=== PATIENT | female | born 1980 | race American Indian/Alaskan Native ===

== ENCOUNTER 2016-11-06 12:10 | Emergency (ER) | payer OTHER ==
[2016-11-06 12:36] VITALS: RESP 18
[2016-11-06 13:38] LABS: BASO # 0.1 K/uL (0.0-0.2); BASO % 0.5 % (0.0-2.0); EOS # 2.1 K/uL (0.0-0.7); EOS % 17.3 % (0.0-4.0); HEMOGLOBIN 11.6 g/dL (11.0-16.0); LYMPH # 2.5 K/uL (1.0-4.3); LYMPH % 21.1 % (20.0-40.0); MEAN CELL VOLUME 83.8 fL (81.0-99.0); MEAN CORPUSCULAR HEMOGLOBIN 27.2 pg (27.0-31.0); MEAN CORPUSCULAR HGB CONC 32.4 g/dL (33.0-37.0); MEAN PLATELET VOLUME 9.2 fL (7.2-11.7); MONO # 0.8 K/uL (0.0-0.8); MONO % 7.1 % (0.0-10.0); NEUT # 6.4 K/uL (1.8-7.0); RBC 4.28 Mil/uL (3.80-5.20); RED CELL DISTRIBUTION WIDTH 13.5 % (11.5-14.5); WHITE BLOOD COUNT 11.9 K/uL (4.8-10.8)
[2016-11-06 13:54] LABS: HCG,QUALITATIVE URINE POSITIVE (NEGATIVE)
[2016-11-06 13:58] LABS: SQUAMOUS EPITHIAL 1 /hpf (0-5); URINE BILIRUBIN NEGATIVE (NEGATIVE); URINE BLOOD 2+ (NEGATIVE); URINE CLARITY Hazy (Clear); URINE COLOR Amber (YELLOW); URINE GLUCOSE (UA) NORMAL (Normal); URINE LEUKOCYTE ESTERASE 1+ Leu/uL (Negative); URINE NITRATE NEGATIVE (NEGATIVE); URINE PROTEIN 1+ mg/dL (NEGATIVE); URINE UROBILINOGEN NORMAL mg/dL (0.2-1.0)
[2016-11-06 14:22] LABS: ALB/GLOB RATIO 1.1 (1.0-2.1); ALT/SGPT 19 U/L (9-52); AST/SGOT 23 U/L (14-36); BLOOD UREA NITROGEN 6 mg/dL (7-17); GFR AFRICAN-AMERICAN > 60; GFR NON-AFRICAN AMERICAN > 60
[2016-11-06 14:23] LABS: CALCIUM 8.8 mg/dl (8.6-10.4)
--- NOTE | 2016-11-06 14:54 | US ---
Indication: Bleeding Comparison: None available Technique: Real-time transabdominal pelvic ultrasound was performed. In addition a transvaginal pelvic ultrasound was necessary to better depict pelvic anatomy. Findings: The uterus measures approximately 11.1 x 6.4 x 7.1 cm. Cervix length measures approximately 3.8 cm. There is a single intrauterine fetus present. The gestational sac measures 1.1 cm and is compatible with a gestational age of 5 weeks 2 days. The crown-rump length measures 1.2 cm and is compatible with a gestational age of 7 weeks 3 days. heart motion is not detected. The right ovary measures 2.6 x 1.8 x2.1 cm. 0.6 x 0.7 x 0.5 cm echogenic focus within the right ovary, indeterminate. The left ovary measures 3.6 x 1.8 x 2.9 cm. Blood flow was demonstrated to both ovaries. Impression: Single intrauterine compatible with gestational age 5 weeks 2 days by gestational sac calculation and 7 weeks 3 days by crown-rump length calculation. heart motion is not detected. Correlate clinically. 0.6 x 0.7 x 0.5 cm echogenic focus within the right ovary, indeterminate ; possibly complex cyst however dermoid is not excluded. Recommend short-term (6 week) ultrasound follow-up in order to assess for resolution.
--- NOTE | 2016-11-06 15:02 | C.PDOC ---
History Of Present Illness 36 y/o female, , 8 weeks , presents to the ED for evaluation of vaginal spotting associated with cramping abdominal pain for the last 2 days. Otherwise, denies any dysuria, hematuria, vaginal discharge, back pain, n/v/d, or fever. used for translation. Time Seen by Provider: 11/06/16 12:30 Chief Complaint (Nursing): Female Genitourinary History Per: Patient, Family History/Exam Limitations: language barrier (family used) Onset/Duration Of Symptoms: Days (2) Current Symptoms Are (Timing): Still Present Quality Of Discomfort: Cramping Associated Symptoms: denies: Fever, Chills, Nausea, Vomiting, Diarrhea, Loss Of Appetite, Back Pain, Chest Pain, Constipation, Urinary Symptoms Alleviating Factors: None Recent travel outside of the [place]: No Additional History Per: Patient Abnormal Vaginal Bleeding: Yes : 4 Para: 3 Miscarriage: 0 Past Medical History Reviewed: Historical Data, Nursing Documentation, Vital Signs Vital Signs: Last Vital Signs Temp 97.7 F 11/06/16 15:18 Pulse 80 11/06/16 15:18 Resp 18 11/06/16 15:18 BP 97/65 L 11/06/16 15:18 Pulse Ox 97 11/06/16 16:59 Family History: States: Unknown Family Hx - Social History Hx Alcohol Use: No Hx Substance Use: No - Immunization History Hx Tetanus Toxoid Vaccination: No Hx Influenza Vaccination: No Hx Pneumococcal Vaccination: No Review Of Systems Except As Marked, All Systems Reviewed And Found Negative. Constitutional: Negative for: Fever, Chills Gastrointestinal: Positive for: Abdominal Pain. Negative for: Nausea, Vomiting , Diarrhea, Constipation Genitourinary: Positive for: Vaginal Bleeding (spotting). Negative for: Dysuria , Frequency, Incontinence, Hematuria, Vaginal Discharge Musculoskeletal: Negative for: Back Pain Skin: Negative for: Rash Physical Exam - Physical Exam Appears: Non-toxic, No Acute Distress Skin: Normal Color, Warm, Dry Head: Atraumatic, Normacephalic Eye(s): bilateral: Normal Inspection, EOMI Nose: Normal Oral Mucosa: Moist Neck: Normal ROM, Supple Chest: Symmetrical Cardiovascular: Rhythm Regular, No Murmur Respiratory: Normal Breath Sounds, No Rales, No Rhonchi, No Wheezing Gastrointestinal/Abdominal: Normal Exam, Soft, No Tenderness, No Guarding, No Rebound Back: Normal Inspection Extremity: Normal ROM Neurological/Psych: Oriented x3, Normal Speech ED Course And Treatment - Laboratory Results Result Diagrams: 11/06/16 13:28 11/06/16 13:28 O2 Sat by Pulse Oximetry: 97 (RA) Pulse Ox Interpretation: Normal - CT Scan/US Preg 1st trimester US Other Rad Studies (CT/US): Read By Radiologist, Radiology Report Reviewed CT/US Interpretation: Findings: The uterus measures approximately 11.1 x 6.4 x 7.1 cm. Cervix length measures approximately 3.8 cm. There is a single intrauterine fetus present. The gestational sac measures 1.1 cm and is compatible with a gestational age of 5 weeks 2 days. The crown-rump length measures 1.2 cm and is compatible with a gestational age of 7 weeks 3 days. heart motion is not detected. The right ovary measures 2.6 x 1.8 x2.1 cm. 0.6 x 0.7 x 0.5 cm echogenic focus within the right ovary, indeterminate. The left ovary measures 3.6 x 1.8 x 2.9 cm. Blood flow was demonstrated to both ovaries. Impression: Single intrauterine compatible with gestational age 5 weeks 2 days by gestational sac calculation and 7 weeks 3 days by crown-rump length calculation. heart motion is not detected. Correlate clinically. 0.6 x 0.7 x 0.5 cm echogenic focus within the right ovary , indeterminate ; possibly complex cyst however dermoid is not excluded. Recommend short-term (6 week) ultrasound follow-up in order to assess for resolution. Progress Note: Blood work, urinalysis, preg 1st trimester ultrasound ordered and reviewed. Discussed lab and ultrasound results with patient and copies given. Discussed importance of repeat lab and imaging in 3-4 days for futher evaluation. Disposition - Disposition Disposition: HOME/ ROUTINE Disposition Time: 15:00 Condition: STABLE Additional Instructions: BetaHCG todday is 5800. Follow up with your OB/ ER in 3-4 days for further evaluation. Return to the emergency department at any time if symptoms persist or worsen. Prescriptions: Nitrofurantoin Macrocrystals [Macrobid] 1 cap PO BID #14 cap Multivit/Folic Acid/I [ Plus] 1 tab PO DAILY #30 tab Instructions: Threatened Miscarriage (ED) Forms: [facility] (Citizen Of [place]) - Clinical Impression Clinical Impression: Threatened - PA / CODING SUPPORT SPECIALIST / Resident Statement MD/DO has reviewed & agrees with the documentation as recorded. - Scribe Statement The provider has reviewed the documentation as recorded by the Scribe Amor Joyce All medical record entries made by the Ranjithibe were at my direction and personally dictated by me. I have reviewed the chart and agree that the record accurately reflects my personal performance of the history, physical exam, medical decision making, and the department course for this patient. I have also personally directed, reviewed, and agree with the discharge instructions and disposition.
[2016-11-06 15:19] VITALS: BP 97/65; PULSE 80; TEMP 97.7
[2016-11-06 16:50] VITALS: O2SAT 97
== END 2016-11-06 15:39 | disposition home or self-care (01) ==
LOC: C.ER 12:10
DX: O20.0 Threatened abortion (principal); Z3A.01 Less than 8 weeks gestation of pregnancy

== ENCOUNTER 2016-11-11 13:00 | Emergency (ER) | payer OTHER | END 2016-11-11 16:00 | disposition home or self-care (01) | LOC: C.ER 13:00 | DX: O03.9 Complete or unspecified spontaneous abortion without complication (principal) ==

== ENCOUNTER 2018-05-12 23:32 | Observation (INO) | payer OTHER ==
[2018-05-12 23:54] VITALS: BMI 30.2
[2018-05-13] MEDS ORDERED: Lactated Ringer's 1,000 ML IV ONE (00:36)
[2018-05-13 00:47] LABS: SQUAMOUS EPITHIAL 6 /hpf (0-5); URINE BACTERIA OCC (<OCC); URINE BILIRUBIN NEGATIVE (NEGATIVE); URINE BLOOD NEGATIVE (NEGATIVE); URINE COLOR Yellow (YELLOW); URINE GLUCOSE (UA) NORMAL (Normal); URINE LEUKOCYTE ESTERASE 2+ Leu/uL (Negative); URINE PROTEIN NEGATIVE (NEGATIVE); URINE UROBILINOGEN NORMAL mg/dL (0.2-1.0)
[2018-05-13 00:48] LABS: URINE CLARITY Hazy (Clear)
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
[2018-05-13] MEDS ORDERED: Magnesium Sulfate 4 gm/100 ml 4 GM/100 ML BAG IVPB ONE ×2 (01:20→02:02)
[2018-05-13] MEDS ORDERED: Magnesium Sulfate 20 gm 20 GM/500 ML BAG IV ONE (01:20)
[2018-05-13] MEDS ORDERED: Lactated Ringer's 1,000 ML IV SCH (01:30)
[2018-05-13] MEDS: Betamethasone Soluspan 30 mg/5mL Inj Susp IM SCH (02:05)
[2018-05-13 02:23] LABS: PROTHROMBIN TIME 11.2 SECONDS (9.7-12.2)
[2018-05-13] MEDS ORDERED: Magnesium Sulfate 20 gm 20,000 MG/500 ML BAG IV ONE ×3 (02:51→19:32)
[2018-05-13 07:34] LABS: HEMOGLOBIN 10.6 g/dL (11.0-16.0); MEAN CELL VOLUME 85.6 fL (81.0-99.0); MEAN CORPUSCULAR HEMOGLOBIN 28.1 pg (27.0-31.0); MEAN CORPUSCULAR HGB CONC 32.8 g/dL (33.0-37.0); MEAN PLATELET VOLUME 10.1 fL (7.2-11.7); RBC 3.77 Mil/uL (3.80-5.20); RED CELL DISTRIBUTION WIDTH 13.1 % (11.5-14.5); WHITE BLOOD COUNT 10.7 K/uL (4.8-10.8)
[2018-05-13 07:49] LABS: ALB/GLOB RATIO 1.1 (1.0-2.1); ALBUMIN 3.7 g/dL (3.5-5.0); ALT/SGPT 7 U/L (9-52); AST/SGOT 19 U/L (14-36); BLOOD UREA NITROGEN 5 mg/dL (7-17); CALCIUM 7.8 mg/dl (8.6-10.4); GFR NON-AFRICAN AMERICAN > 60
[2018-05-13 08:26] LABS: FDP INTERPRETATION NEGATIVE (NEGATIVE); FDP QUANTITY <10 ug/mL (<10)
--- NOTE | 2018-05-13 08:44 | US ---
PROCEDURE: HISTORY: LMP 10/19/2017; fell COMPARISON: 11/06/2016 TECHNIQUE: Transabdominal scanning of the maternal pelvis and a 2nd/ 3rd trimester with image documentation FINDINGS: Fetus: Single intrauterine gestation heart rate: Present at 135 beats per minute presentation: Cephalic Placenta: Anteriorwithout previa or abruption Amniotic fluid : Normal appearing: Amniotic fluid index 21.75 cm anatomy: Limited due to late gestation. biometrics: Gestational age by ultrasound: 30 weeks 3 days +/-2 weeks 1 day date of delivery by ultrasound 07/19/2018 prior ultrasound estimated date of delivery by ultrasound was 06/29/2017. Estimated weight: 1546g +/-232g Maternal factors: Uterus: Unremarkable. No myometrial masses Cervix:3.1 cm length Free fluid: None Biophysical profile: Breathin Gross body movements: 2 Limb tone: 2 Amniotic Fluid: 2 Total biophysical profile: 11/11 IMPRESSION: Single intrauterine gestation with normal cardiac activity. presentation - cephalic presentation. Anterior placenta. No previa. Closed cervix. Cervical length 3.1 cm. Biophysical profile 11/11 Concordant results (preliminary interpretation) provided by ernie.
[2018-05-13] MEDS ORDERED: Magnesium Sulfate 20 gm 20 GM/500 ML BAG IV SCH (10:15)
[2018-05-13 11:07] LABS: SQUAMOUS EPITHIAL < 1 /hpf (0-5); URINE BACTERIA RARE (<OCC); URINE BILIRUBIN NEGATIVE (NEGATIVE); URINE BLOOD NEGATIVE (NEGATIVE); URINE CLARITY Clear (Clear); URINE COLOR Straw (YELLOW); URINE GLUCOSE (UA) NORMAL (Normal); URINE LEUKOCYTE ESTERASE NEG Leu/uL (Negative); URINE PROTEIN NEGATIVE (NEGATIVE); URINE UROBILINOGEN NORMAL mg/dL (0.2-1.0)
--- NOTE | 2018-05-13 13:45 | RAD ---
Date of service: 05/13/2018 PROCEDURE: Left Knee Radiographs. HISTORY: Pain. COMPARISON: None. FINDINGS: BONES: No acute fracture or destructive bony lesion identified. JOINTS: No osteophyte development or cortical sclerosis appreciate however there is mild joint space narrowing the medial femorotibial compartment. JOINT EFFUSION: None. OTHER FINDINGS: None. IMPRESSION: Mild degenerative change medial femorotibial compartment. No acute fracture, subluxation or dislocation left knee.
[2018-05-14] MEDS: Betamethasone Soluspan 30 mg/5mL Inj Susp IM SCH (02:05)
[2018-05-14] MEDS ORDERED: MAGNESIUM SULFATE IV ONE (04:47)
[2018-05-14] MEDS ORDERED: Oxycodone/Acetaminophen 5/325 mg Tab PO STA (09:57)
[2018-05-14 15:06] VITALS: BP 106/67; PULSE 107; RESP 18; TEMP 97; O2SAT 99
== END 2018-05-14 10:45 | disposition home or self-care (01) ==
LOC: C.EROB 23:32 → C.4D 05-13 01:12 → INTOOBSV 05-13 01:12
PROVIDERS: ADMIT Obstetrics & Gynecology; ATTEND Obstetrics & Gynecology
DX: O60.03 Preterm labor without delivery, third trimester (principal); Z3A.30 30 weeks gestation of pregnancy; V78.4XXA Person boarding or alighting from bus injured in noncollision transport accident, initial encounter
CPT/HCPCS: 73560; 76815; 76818; 80053; 81001; 83735; 85027; 85362; 85384; 85610; 85730; 86850; 86900; 86920; 96360; 96365; 96372; G0378; J0702; J2270; J3475; J7120

== ENCOUNTER 2018-06-24 03:01 | Inpatient (IN) | payer MEDICAID, OTHER ==
[2018-06-24] MEDS ORDERED: Albuterol-Ipratrop 3 mg / 0.5 (3 ml) UD ONE ×3 (03:18→07:55)
[2018-06-24] MEDS ORDERED: Magnesium Sulfate 1 gm in D5W 1 GM/100 ML BAG IV ONE (03:34)
[2018-06-24] MEDS ORDERED: Albuterol 0.083% Inhal Sol (2.5 mg/3 mL) UD IH STA ×4 (03:34→04:47)
[2018-06-24] MEDS ORDERED: Sodium Chloride 0.9% 1,000 ML IV ONE (03:34)
[2018-06-24] MEDS ORDERED: Magnesium Sulfate 1 gm in D5W 2 GM/200 ML BAG IVPB ONE (03:49)
[2018-06-24] MEDS ORDERED: Albuterol 0.083% Inhal Sol (2.5 mg/3 mL) UD ONE ×3 (03:49→05:02)
[2018-06-24] MEDS ORDERED: Sodium Chloride 0.9% 1,000 ML ONE (03:49)
[2018-06-24 03:53] LABS: VENOUS BLOOD GAS BASE EXCESS -2.8 mmol/L (0.0-2.0); VENOUS BLOOD GAS PCO2 37 mmHg (40-60); VENOUS BLOOD GAS PO2 84 mm/Hg (30-55); VENOUS BLOOD PH 7.38 (7.32-7.43)
[2018-06-24 03:55] LABS: BASO # 0.1 K/uL (0.0-0.2); BASO % 0.6 % (0.0-2.0); EOS % 10.7 % (0.0-4.0); HEMOGLOBIN 10.7 g/dL (11.0-16.0); LYMPH % 21.8 % (20.0-40.0); MEAN CELL VOLUME 82.1 fL (81.0-99.0); MEAN CORPUSCULAR HEMOGLOBIN 26.7 pg (27.0-31.0); MEAN CORPUSCULAR HGB CONC 32.6 g/dL (33.0-37.0); MONO # 1.3 K/uL (0.0-0.8); NEUT # 4.9 K/uL (1.8-7.0); NEUT % 52.9 % (50.0-75.0); NRBC % 0.1 % (0.0-2.0); RBC 4.01 Mil/uL (3.80-5.20); RED CELL DISTRIBUTION WIDTH 13.3 % (11.5-14.5); WHITE BLOOD COUNT 9.2 K/uL (4.8-10.8)
[2018-06-24 04:01] LABS: ALB/GLOB RATIO 1.1 (1.0-2.1); ALBUMIN 3.8 g/dL (3.5-5.0); BLOOD UREA NITROGEN 5 mg/dL (7-17); GFR NON-AFRICAN AMERICAN > 60
[2018-06-24 04:09] LABS: ALT/SGPT 141 U/L (9-52); AST/SGOT 162 U/L (14-36)
--- NOTE | 2018-06-24 04:49 | C.PDOC ---
History Of Present Illness 38 year old female BIBA for evaluation of SOB and wheezing that began at 8pm tonight. Patient was recently diagnosed with asthma and states she has no albuterol at home. Patient denies chest pain, palpitations, nausea, vomiting, abdominal or pelvic pain, vaginal bleeding/discharge. Patient is currently approx 8 months (32weeks). Time Seen by Provider: 06/24/18 03:25 Chief Complaint (Nursing): Shortness Of Breath History Per: Patient, Family ( at bedside ) History/Exam Limitations: clinical condition Onset/Duration Of Symptoms: Hrs Current Symptoms Are (Timing): Still Present Current Respiratory Medications: See Home Med List Severity: Moderate Associated Symptoms: Other (SOB, Wheezing) Recent travel outside of the [place]: No Past Medical History Reviewed: Historical Data, Nursing Documentation, Vital Signs Vital Signs: Last Vital Signs Temp 97.4 F L 06/24/18 03:10 Pulse 106 H 06/24/18 03:10 Resp 27 H 06/24/18 03:23 BP 107/76 06/24/18 03:10 Pulse Ox 100 06/24/18 03:23 - Medical History PMH: Asthma Family History: States: No Known Family Hx - Social History Hx Alcohol Use: No Hx Substance Use: No - Immunization History Hx Tetanus Toxoid Vaccination: No Hx Influenza Vaccination: No Hx Pneumococcal Vaccination: No Review Of Systems Constitutional: Negative for: Fever, Chills Cardiovascular: Negative for: Chest Pain, Palpitations Respiratory: Positive for: Shortness of Breath, Wheezing. Negative for: Cough Gastrointestinal: Negative for: Nausea, Vomiting, Abdominal Pain, Diarrhea Physical Exam - Physical Exam Appears: Non-toxic, Other (Audibly wheezing, in mild respiratory distress) Skin: Normal Color, Warm, Dry, No Rash Head: Atraumatic Eye(s): bilateral: Normal Inspection Ear(s): Bilateral: Normal Oral Mucosa: Moist Throat: Normal, No Erythema, No Exudate, No Drooling Neck: Normal, Supple Chest: Symmetrical, No Tenderness Cardiovascular: Rhythm Regular (tachycardic ) Respiratory: Accessory Muscle Use (Mild), No Rales, No Rhonchi, Wheezing (Diffuse expiratory wheezing B/L ) Gastrointestinal/Abdominal: Bowel Sounds, Soft, No Tenderness, Other (Gravid) Extremity: Normal ROM, No Pedal Edema, No Calf Tenderness Pulses: Left Dorsalis Pedis: Normal, Right Dorsalis Pedis: Normal Neurological/Psych: Oriented x3 ED Course And Treatment - Laboratory Results Result Diagrams: 06/24/18 03:53 06/24/18 03:53 Lab Results: pO2 84 mm/Hg (30-55) H 06/24/18 03:45 VBG pH 7.38 (7.32-7.43) 06/24/18 03:45 VBG pCO2 37 mmHg (40-60) L 06/24/18 03:45 VBG HCO3 22.7 mmol/L 06/24/18 03:45 VBG Total CO2 23.0 mmol/L (22-28) 06/24/18 03:45 VBG O2 Sat (Calc) 98.2 % (40-65) H 06/24/18 03:45 VBG Base Excess -2.8 mmol/L (0.0-2.0) L 06/24/18 03:45 VBG Potassium 3.6 mmol/L (3.6-5.2) 06/24/18 03:45 Sodium 136.0 mmol/l (132-148) 06/24/18 03:45 Chloride 104.0 mmol/L (98-107) 06/24/18 03:45 Glucose 98 mg/dl (65-105) 06/24/18 03:45 Lactate 1.1 mmol/L (0.7-2.1) 06/24/18 03:45 Total Bilirubin 1.2 mg/dL (0.2-1.3) 06/24/18 03:53 AST 162 U/L (14-36) H D 06/24/18 03:53 ALT 141 U/L (9-52) H D 06/24/18 03:53 Alkaline Phosphatase 166 U/L (38-126) H D 06/24/18 03:53 Total Protein 7.4 g/dL (6.3-8.3) 06/24/18 03:53 Albumin 3.8 g/dL (3.5-5.0) 06/24/18 03:53 Globulin 3.6 gm/dL (2.2-3.9) 06/24/18 03:53 Albumin/Globulin Ratio 1.1 (1.0-2.1) 06/24/18 03:53 O2 Sat by Pulse Oximetry: 100 (Room air) Pulse Ox Interpretation: Normal Progress Note: Blood work ordered. IV fluids, solumedrol, mag sulfate, and albuterol administered. Reevaluation Time: 05:00 Reassessment Condition: Unchanged (Patient continues to have diffuse exp wheezing B/L and mild accessory muslce use. Vapotherm ordered, and patient will need admission.) Disposition - Disposition Forms: [facility] ([place]) - Scribe Statement The provider has reviewed the documentation as recorded by the Scribramses [place] All medical record entries made by the Scribe were at my direction and personally dictated by me. I have reviewed the chart and agree that the record accurately reflects my personal performance of the history, physical exam, medical decision making, and the department course for this patient. I have also personally directed, reviewed, and agree with the discharge instructions and disposition.
[2018-06-24 05:53] LABS: SQUAMOUS EPITHIAL 5 /hpf (0-5); URINE BACTERIA OCC (<OCC); URINE BILIRUBIN NEGATIVE (NEGATIVE); URINE BLOOD NEGATIVE (NEGATIVE); URINE COLOR Yellow (YELLOW); URINE GLUCOSE (UA) NORMAL (Normal); URINE PROTEIN NEGATIVE (NEGATIVE)
[2018-06-24 06:09] LABS: URINE CLARITY Hazy (Clear); URINE LEUKOCYTE ESTERASE 2+ Leu/uL (Negative)
[2018-06-24] MEDS: Albuterol 0.083% Inhal Sol (2.5 mg/3 mL) UD IH SCH ×7 (06:36→20:00)
--- NOTE | 2018-06-24 09:34 | US ---
Date of service: 06/24/2018 PROCEDURE: Obstetrical ultrasound examination HISTORY: 32wks; acute asthma exacerbation COMPARISON: Not available TECHNIQUE: Transabdominal FINDINGS: There is a single live intrauterine gestation identified in cephalic presentation. The heart rate is 144 beats per minute. A normal quantity of amniotic fluid is visualized. The CLARISSA is 11.5 cm. A normal anterior placenta is identified. There is no evidence of placenta previa. The cervix is closed and measures 3.2 cm in length. biometry yields a gestational age of 36 weeks 2 days. The LUCAS by ultrasound is 07/20/2018. The LUCAS by LMP of 10/19/2017 is 35 weeks 3 days. The estimated weight is 2874 g. Limited biophysical profile examination yields a score of 8 out of 8. Please note that anatomy was not assessed at this time. Nevertheless, a 4 chamber heart is demonstrated. There is fluid distending the stomach and urinary bladder. The anterior abdominal wall is intact. There is no evidence of hydronephrosis. A three-vessel umbilical cord is identified. IMPRESSION: Single live intrauterine gestation of approximately 36 weeks 2 days gestational age. Cephalic presentation. heart rate 144 beats per minute. Anterior placenta. No previa. Cervix long and closed. No gross anatomic abnormality. Biophysical profile score 8 out of 8. EFW is 2874 g.
[2018-06-24] MEDS: Budesonide 0.5 mg/2 ml Inhal Susp UD INH SCH ×2 (10:05→20:01)
[2018-06-24] MEDS: MethylPREDNISolone 40 mg Vial IVP SCH ×3 (10:27→22:00)
--- NOTE | 2018-06-24 10:27 | RAD ---
Date of service: 06/24/2018 PROCEDURE: CHEST RADIOGRAPH, 1 VIEW HISTORY: SOB - , PLEASE SHIELD ABDOMEN COMPARISON: None available. FINDINGS: LUNGS: The lungs are well inflated and clear. PLEURA: No pneumothorax or pleural effusion. CARDIOVASCULAR: The heart is normal in size. No aortic atherosclerotic calcifications present. OSSEOUS STRUCTURES: Within normal limits for the patient's age. VISUALIZED UPPER ABDOMEN: Normal. OTHER FINDINGS: None. IMPRESSION: No active pulmonary disease.
--- NOTE | 2018-06-24 10:32 | CP.PCM.CON ---
<Fabian Max - Last Filed: 06/24/18 15:05> History of Present Illness - History of Present Illness History of Present Illness: DISPATCHER ELECTRIC POWER CONSULT NOTE FOR DR. 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 at bedside, translating for pt, reports pt has been feeling SOB for several weeks since her last admission (05/13/18) when she presented to [facility] s/p fall. He reports pt decided to come to ED today as SOB had become unbearable. Pt reports SOB is not aggravated/alleviated with anything in particular. She reports a history of childhood asthma however does not use a rescue inhaler at home. She was recently diagnosed with a "urinary tract infection" and was prescribed antibiotics, however reports noncompliance. She reports she feels movements and has occasional contractions, however does not currently feel contractions. 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 She currently reports continued shortness of breath that has improved significantly since receiving treatment and high-flow O2 supplementation in ED. Currently she denies fevers, chills, headache, dizziness, vision changes, chest pain, palpitations, nausea, vomiting, diarrhea, dysuria. ObHx: , term NSVDx3(2007, 2008, 2011) w/o complications GynHx: LMP 09/21/17. Menarche 13 y/o. Menstruation q28d lasting 5 days with moderate bleeding. Currently sexually active with 1 partner (). No hx of STI. Denies previous contraceptive use. Mammogram/Pap N/A PMH: Childhood asthma All: NKDA PSH: Denies SH: Denies tobacco, ETOH, illicit drug use FH: Mother/Father: noncontributory. Denies FH of defects, intellectual disability, recurrent loss Hosp: 05/13/18 s/p fall at bus stop. Was admitted, BPP 11/11 and discharged from [facility] Meds: Ferrous sulfate, multivitamins PMD: Dr. Chandra Otto Coat Cutter: Dr. Jaren Figueredo ([facility]) Current O2 Supplementation: HFOT 40L @ 100% FiO2 Review of Systems - Review of Systems Review of Systems: per HPI Past Patient History - Past Social History Smoking Status: Never Smoked - CARDIAC Hx Hypertension: No - PULMONARY Hx Asthma: Yes - PSYCHIATRIC Hx Substance Use: No - SURGICAL HISTORY Hx Surgeries: No - ANESTHESIA Hx Anesthesia: No Meds Allergies/Adverse Reactions: Allergies Allergy/AdvReac Type Severity Reaction Status Date / Time No Known Allergies Allergy Verified 11/11/16 13:33 - Medications Medications: Current Medications Albuterol Sulfate (Albuterol 0.083% Inhal Essence (2.5 Mg/3 Ml) Ud) 2.5 mg IH Q2 ON LICENSE OF [facility] Last Admin: 06/24/18 10:05 Dose: 2.5 mg Budesonide (Pulmicort Respules) 0.5 mg INH RQ12 ON LICENSE OF [facility] Last Admin: 06/24/18 10:05 Dose: 0.5 mg Lactated Ringer's (Lactated Ringer's) 1,000 mls @ 75 mls/hr IV .[id number] ON LICENSE OF [facility] Methylprednisolone (Solu-Medrol) 40 mg IVP Q6H ON LICENSE OF [facility] Last Admin: 06/24/18 10:27 Dose: 40 mg Physical Exam - Constitutional Appears: Well, Non-toxic, No Acute Distress - Head Exam Head Exam: NORMAL INSPECTION, NORMOCEPHALIC - Eye Exam Eye Exam: EOMI, Normal appearance Pupil Exam: PERRL - ENT Exam ENT Exam: Mucous Membranes Moist, Normal Exam - Neck Exam Neck exam: Positive for: Normal Inspection - Respiratory Exam Respiratory Exam: Wheezes - Cardiovascular Exam Cardiovascular Exam: Tachycardia, +S1, +S2 - GI/Abdominal Exam GI & Abdominal Exam: Distended (Appropriate for ) - Exam External exam: NORMAL EXTERNAL EXAM Additional comments: 30% effacement High station, fingertip length Medium consistency cervix - Extremities Exam Extremities exam: Positive for: pedal edema (trace) - Back Exam Back exam: NORMAL INSPECTION - Neurological Exam Neurological exam: Alert, Oriented x3 - Psychiatric Exam Psychiatric exam: Normal Affect, Normal Mood - Skin Skin Exam: Dry, Intact, Warm Results - Vital Signs Recent Vital Signs: Last Vital Signs Temp 98.2 F 06/24/18 09:39 Pulse 122 H 06/24/18 09:28 Resp 22 06/24/18 10:16 BP 107/78 06/24/18 09:28 Pulse Ox 100 06/24/18 09:28 - Labs Result Diagrams: 06/24/18 03:53 06/24/18 03:53 Labs: Laboratory Results - last 24 hr 06/24/18 06/24/18 06/24/18 03:45 03:53 03:53 WBC 9.2 RBC 4.01 Hgb 10.7 L Hct 32.9 L MCV 82.1 D MCH 26.7 L MCHC 32.6 L RDW 13.3 Plt Count 208 MPV 11.0 Neut % (Auto) 52.9 Lymph % (Auto) 21.8 [place] % (Auto) 14.0 H Eos % (Auto) 10.7 H Baso % (Auto) 0.6 Neut # (Auto) 4.9 Lymph # (Auto) 2.0 [place] # (Auto) 1.3 H Eos # (Auto) 1.0 H Baso # (Auto) 0.1 pO2 84 H VBG pH 7.38 VBG pCO2 37 L VBG HCO3 22.7 VBG Total CO2 23.0 VBG O2 Sat (Calc) 98.2 H VBG Base Excess -2.8 L VBG Potassium 3.6 Sodium 136.0 134 Chloride 104.0 105 Glucose 98 Lactate 1.1 Potassium 4.1 Carbon Dioxide 22 Anion Gap 11 BUN 5 L Creatinine 0.5 L Est GFR ( Amer) > 60 Est GFR (Non-Af Amer) > 60 Random Glucose 91 D Calcium 9.0 Total Bilirubin 1.2 AST 162 H D ALT 141 H D Alkaline Phosphatase 166 H D Total Protein 7.4 Albumin 3.8 Globulin 3.6 Albumin/Globulin Ratio 1.1 Venous Blood Potassium 3.6 Urine Color Urine Clarity Urine pH Ur Specific [place] Urine Protein Urine Glucose (UA) Urine Ketones Urine Blood Urine Nitrate Urine Bilirubin Urine Urobilinogen Ur Leukocyte Esterase Urine WBC (Auto) Urine RBC (Auto) Ur Squamous Epith Cells Urine Bacteria 06/24/18 05:37 WBC RBC Hgb Hct MCV MCH MCHC RDW Plt Count MPV Neut % (Auto) Lymph % (Auto) [place] % (Auto) Eos % (Auto) Baso % (Auto) Neut # (Auto) Lymph # (Auto) [place] # (Auto) Eos # (Auto) Baso # (Auto) pO2 VBG pH VBG pCO2 VBG HCO3 VBG Total CO2 VBG O2 Sat (Calc) VBG Base Excess VBG Potassium Sodium Chloride Glucose Lactate Potassium Carbon Dioxide Anion Gap BUN Creatinine Est GFR ( Amer) Est GFR (Non-Af Amer) Random Glucose Calcium Total Bilirubin AST ALT Alkaline Phosphatase Total Protein Albumin Globulin Albumin/Globulin Ratio Venous Blood Potassium Urine Color Yellow Urine Clarity Hazy Urine pH 5.0 Ur Specific [place] 1.011 Urine Protein Negative Urine Glucose (UA) Normal Urine Ketones 1+ H Urine Blood Negative Urine Nitrate Negative Urine Bilirubin Negative Urine Urobilinogen 2.0 H Ur Leukocyte Esterase 2+ H Urine WBC (Auto) 18 H Urine RBC (Auto) 7 H Ur Squamous Epith Cells 5 Urine Bacteria Occ H Assessment & Plan - Assessment and Plan (Free Text) Assessment: 38 y/o (sABx2) Mexican-Togolese F with IUP at 36wk 2d (confirmed by u/s) with LUCAS 06/28/18 presenting to ED with acute onset asthma exacerbation. Pt refractory to treatment in ED and accepted to ICU. Pt currently afebrile, normotensive, tachycardic, saturating well on HFOT. No signs of seizure-like activity. Pt not in active labor. Coat Cutter consulted for assessment. Plan: - NST performed at bedside. Category 1 reactive NST with moderate variability, FHR: 140s - obtain bedside OB ultrasound, assess IUP & biophysical profile - begin antibiotic for UTI - culture GBS, has been collected at bedside - continue pre- multivitamins and oral iron supplemention - Continue to monitor closely - We will continue to follow - further medical care per ICU team Pt seen, examined and case discussed with attending physician, Dr. Posada. Further recs per attending Fabian Max PGY1 <Sabrina Posada - Last Filed: 06/24/18 15:27> Meds - Medications Medications: Current Medications Albuterol Sulfate (Albuterol 0.083% Inhal Essence (2.5 Mg/3 Ml) Ud) 2.5 mg IH RQ2 ON LICENSE OF [facility] Last Admin: 06/24/18 13:54 Dose: 2.5 mg Budesonide (Pulmicort Respules) 0.5 mg INH RQ12 ON LICENSE OF [facility] Last Admin: 06/24/18 10:05 Dose: 0.5 mg Enoxaparin Sodium (Lovenox) 40 mg SC DAILY ON LICENSE OF [facility] Last Admin: 06/24/18 12:26 Dose: 40 mg Lactated Ringer's (Lactated Ringer's) 1,000 mls @ 75 mls/hr IV .[id number] ON LICENSE OF [facility] Last Admin: 06/24/18 10:48 Dose: 75 mls/hr Ceftriaxone Sodium 1 gm/ (Sodium Chloride) 100 mls @ 100 mls/hr IVPB DAILY ON LICENSE OF [facility]; Protocol Last Admin: 06/24/18 12:27 Dose: 100 mls/hr Methylprednisolone (Solu-Medrol) 40 mg IVP Q6H ON LICENSE OF [facility] Last Admin: 06/24/18 10:27 Dose: 40 mg Results - Vital Signs Recent Vital Signs: Last Vital Signs Temp 97.7 F 06/24/18 12:00 Pulse 112 H 06/24/18 15:00 Resp 19 06/24/18 15:00 BP 113/63 06/24/18 15:00 Pulse Ox 100 06/24/18 15:00 - Labs Result Diagrams: 06/24/18 03:53 06/24/18 03:53 Labs: Laboratory Results - last 24 hr 06/24/18 06/24/18 06/24/18 03:45 03:53 03:53 WBC 9.2 RBC 4.01 Hgb 10.7 L Hct 32.9 L MCV 82.1 D MCH 26.7 L MCHC 32.6 L RDW 13.3 Plt Count 208 MPV 11.0 Neut % (Auto) 52.9 Lymph % (Auto) 21.8 [place] % (Auto) 14.0 H Eos % (Auto) 10.7 H Baso % (Auto) 0.6 Neut # (Auto) 4.9 Lymph # (Auto) 2.0 [place] # (Auto) 1.3 H Eos # (Auto) 1.0 H Baso # (Auto) 0.1 pO2 84 H VBG pH 7.38 VBG pCO2 37 L VBG HCO3 22.7 VBG Total CO2 23.0 VBG O2 Sat (Calc) 98.2 H VBG Base Excess -2.8 L VBG Potassium 3.6 Sodium 136.0 134 Chloride 104.0 105 Glucose 98 Lactate 1.1 Potassium 4.1 Carbon Dioxide 22 Anion Gap 11 BUN 5 L Creatinine 0.5 L Est GFR ( Amer) > 60 Est GFR (Non-Af Amer) > 60 Random Glucose 91 D Calcium 9.0 Total Bilirubin 1.2 AST 162 H D ALT 141 H D Alkaline Phosphatase 166 H D NT-Pro-B Natriuret Pep Total Protein 7.4 Albumin 3.8 Globulin 3.6 Albumin/Globulin Ratio 1.1 Venous Blood Potassium 3.6 Urine Color Urine Clarity Urine pH Ur Specific [place] Urine Protein Urine Glucose (UA) Urine Ketones Urine Blood Urine Nitrate Urine Bilirubin Urine Urobilinogen Ur Leukocyte Esterase Urine WBC (Auto) Urine RBC (Auto) Ur Squamous Epith Cells Urine Bacteria Hepatitis A IgM Ab Hep Bs Antigen Hep B Core IgM Ab Hepatitis C Antibody 06/24/18 06/24/18 06/24/18 05:37 11:45 11:45 WBC RBC Hgb Hct MCV MCH MCHC RDW Plt Count MPV Neut % (Auto) Lymph % (Auto) [place] % (Auto) Eos % (Auto) Baso % (Auto) Neut # (Auto) Lymph # (Auto) [place] # (Auto) Eos # (Auto) Baso # (Auto) pO2 VBG pH VBG pCO2 VBG HCO3 VBG Total CO2 VBG O2 Sat (Calc) VBG Base Excess VBG Potassium Sodium Chloride Glucose Lactate Potassium Carbon Dioxide Anion Gap BUN Creatinine Est GFR ( Amer) Est GFR (Non-Af Amer) Random Glucose Calcium Total Bilirubin AST ALT Alkaline Phosphatase NT-Pro-B Natriuret Pep 27.0 Total Protein Albumin Globulin Albumin/Globulin Ratio Venous Blood Potassium Urine Color Yellow Urine Clarity Hazy Urine pH 5.0 Ur Specific [place] 1.011 Urine Protein Negative Urine Glucose (UA) Normal Urine Ketones 1+ H Urine Blood Negative Urine Nitrate Negative Urine Bilirubin Negative Urine Urobilinogen 2.0 H Ur Leukocyte Esterase 2+ H Urine WBC (Auto) 18 H Urine RBC (Auto) 7 H Ur Squamous Epith Cells 5 Urine Bacteria Occ H Hepatitis A IgM Ab Negative Hep Bs Antigen Negative Hep B Core IgM Ab Negative Hepatitis C Antibody Negative Attending/Attestation - Attestation I have personally seen and examined this patient.: Yes I have fully participated in the care of the patient.: Yes I have reviewed all pertinent clinical information: Yes Notes (Text): 06/24/18 15:20 Patient was seen, evaluated and examined by me with the Resident. I performed the cervical exam as documented above (cervical dilatation = fingertip; 30% effaced, mid position, medium consistency: all of which is consistent with advanced gestational age and high parity). I agree with the above as documented. NST was reviewed by me personally - reactive, with a baseline of 140 bpm. Plan of care as above and as per primary medical/ICU teams - culture for GBS (perianal) was obtained and submitted to laboratory - in addition, will obtain NST twice a day
[2018-06-24] MEDS: Lactated Ringer's 1,000 ML IV SCH (10:48)
--- NOTE | 2018-06-24 10:49 | CP.PCM.CON ---
<Fish De La Cruz - Last Filed: 06/24/18 15:49> Meds Allergies/Adverse Reactions: Allergies Allergy/AdvReac Type Severity Reaction Status Date / Time No Known Allergies Allergy Verified 11/11/16 13:33 - Medications Medications: Current Medications Albuterol Sulfate (Albuterol 0.083% Inhal Essence (2.5 Mg/3 Ml) Ud) 2.5 mg IH RQ2 [facility] Last Admin: 06/24/18 13:54 Dose: 2.5 mg Budesonide (Pulmicort Respules) 0.5 mg INH RQ12 [facility] Last Admin: 06/24/18 10:05 Dose: 0.5 mg Enoxaparin Sodium (Lovenox) 40 mg SC DAILY [facility] Last Admin: 06/24/18 12:26 Dose: 40 mg Lactated Ringer's (Lactated Ringer's) 1,000 mls @ 75 mls/hr IV .[id number] [facility] Last Admin: 06/24/18 10:48 Dose: 75 mls/hr Ceftriaxone Sodium 1 gm/ (Sodium Chloride) 100 mls @ 100 mls/hr IVPB DAILY [facility]; Protocol Last Admin: 06/24/18 12:27 Dose: 100 mls/hr Methylprednisolone (Solu-Medrol) 40 mg IVP Q6H [facility] Last Admin: 06/24/18 10:27 Dose: 40 mg Results - Vital Signs Recent Vital Signs: Last Vital Signs Temp 97.7 F 06/24/18 12:00 Pulse 112 H 06/24/18 15:00 Resp 19 06/24/18 15:00 BP 113/63 06/24/18 15:00 Pulse Ox 100 06/24/18 15:00 - Labs Result Diagrams: 06/24/18 03:53 06/24/18 03:53 Labs: Laboratory Results - last 24 hr 06/24/18 06/24/18 06/24/18 03:45 03:53 03:53 WBC 9.2 RBC 4.01 Hgb 10.7 L Hct 32.9 L MCV 82.1 D MCH 26.7 L MCHC 32.6 L RDW 13.3 Plt Count 208 MPV 11.0 Neut % (Auto) 52.9 Lymph % (Auto) 21.8 [place] % (Auto) 14.0 H Eos % (Auto) 10.7 H Baso % (Auto) 0.6 Neut # (Auto) 4.9 Lymph # (Auto) 2.0 [place] # (Auto) 1.3 H Eos # (Auto) 1.0 H Baso # (Auto) 0.1 pO2 84 H VBG pH 7.38 VBG pCO2 37 L VBG HCO3 22.7 VBG Total CO2 23.0 VBG O2 Sat (Calc) 98.2 H VBG Base Excess -2.8 L VBG Potassium 3.6 Sodium 136.0 134 Chloride 104.0 105 Glucose 98 Lactate 1.1 Potassium 4.1 Carbon Dioxide 22 Anion Gap 11 BUN 5 L Creatinine 0.5 L Est GFR ( Amer) > 60 Est GFR (Non-Af Amer) > 60 Random Glucose 91 D Calcium 9.0 Total Bilirubin 1.2 AST 162 H D ALT 141 H D Alkaline Phosphatase 166 H D NT-Pro-B Natriuret Pep Total Protein 7.4 Albumin 3.8 Globulin 3.6 Albumin/Globulin Ratio 1.1 Venous Blood Potassium 3.6 Urine Color Urine Clarity Urine pH Ur Specific [place] Urine Protein Urine Glucose (UA) Urine Ketones Urine Blood Urine Nitrate Urine Bilirubin Urine Urobilinogen Ur Leukocyte Esterase Urine WBC (Auto) Urine RBC (Auto) Ur Squamous Epith Cells Urine Bacteria Hepatitis A IgM Ab Hep Bs Antigen Hep B Core IgM Ab Hepatitis C Antibody 06/24/18 06/24/18 06/24/18 05:37 11:45 11:45 WBC RBC Hgb Hct MCV MCH MCHC RDW Plt Count MPV Neut % (Auto) Lymph % (Auto) [place] % (Auto) Eos % (Auto) Baso % (Auto) Neut # (Auto) Lymph # (Auto) [place] # (Auto) Eos # (Auto) Baso # (Auto) pO2 VBG pH VBG pCO2 VBG HCO3 VBG Total CO2 VBG O2 Sat (Calc) VBG Base Excess VBG Potassium Sodium Chloride Glucose Lactate Potassium Carbon Dioxide Anion Gap BUN Creatinine Est GFR ( Amer) Est GFR (Non-Af Amer) Random Glucose Calcium Total Bilirubin AST ALT Alkaline Phosphatase NT-Pro-B Natriuret Pep 27.0 Total Protein Albumin Globulin Albumin/Globulin Ratio Venous Blood Potassium Urine Color Yellow Urine Clarity Hazy Urine pH 5.0 Ur Specific [place] 1.011 Urine Protein Negative Urine Glucose (UA) Normal Urine Ketones 1+ H Urine Blood Negative Urine Nitrate Negative Urine Bilirubin Negative Urine Urobilinogen 2.0 H Ur Leukocyte Esterase 2+ H Urine WBC (Auto) 18 H Urine RBC (Auto) 7 H Ur Squamous Epith Cells 5 Urine Bacteria Occ H Hepatitis A IgM Ab Negative Hep Bs Antigen Negative Hep B Core IgM Ab Negative Hepatitis C Antibody Negative Attending/Attestation - Attestation I have personally seen and examined this patient.: Yes I have fully participated in the care of the patient.: Yes I have reviewed all pertinent clinical information: Yes Notes (Text): 06/24/18 15:46 I have seen and examined the patient. Medical records, lab studies, and imaging were reviewed by me and a management plan was formulated on multidisciplinary rounds with resident Dr. Weeks. I agree with their documented assessment and plan. r/o PE, with CT angio. continue albuterol q2h and solumedrol. LFT's abdominal sono. r/o fatty liver, unlikely given no coagulopathy. Not HELLP, no thr ombocytopenia. Monitoring closely. Check heart rate. Critical Care Time 35 minutes. Multi-disciplinary rounds were performed with house staff, nursing, speech therapy, respiratory therapy, pharmacy and nutrition with integrated input from the primary team/attending and other consulting services. The documented time is cumulative and includes review of patient data/exams/labs/chart review and examination of the patient on rounds and throughout the day; time is exclusive of any procedures or teaching time. <Luis Angel Weeks - Last Filed: 06/24/18 19:48> History of Present Illness - History of Present Illness History of Present Illness: ICU Consult Note for Dr. De La Cruz This is a 38 y o female currently 8 mos , 36 wks 2 d (LUCAS 07/20/18 via 1st trimester U/s), who presented to the ED with c/o worsening shortness of breath and wheezing since last evening. Pt reports positive hx of childhood asthma diagnosed around age 11-12, however denies ever being on rescue inhaler or nebulizer in past. Reason for ICU consult was for status asthmaticus. Pt reports positive hx of falling several weeks ago and noted lower lumbar back pain since episode. Pt was recently admitted to [facility] for this in May 2018, as per pt has been having worsening sob over the past several weeks since her fall. Denies fever, chills, chest pain, n/v/d/c, abd pain, urinary complaints, or other symptoms. In ED, pt was given multiple treatments of albuterol, Mag sulfate, and Solu-Medrol without improvement in symptoms. ObHx: , term NSVDx3(2007, 2008, 2011) w/o complications GynHx: LMP 09/21/17. Menarche 13 y/o. Menstruation q28d lasting 5 days with moderate bleeding. Currently sexually active with 1 partner (). No hx of STI. Denies previous contraceptive use. Mammogram/Pap N/A PMH: Childhood asthma All: NKDA PSH: Denies SH: Denies tobacco, ETOH, illicit drug use FH: Mother/Father: noncontributory. Hosp: 05/13/18 s/p fall [place] bus stop Meds: Ferrous sulfate, multivitamins PMD: Dr. Chandra Otto Occupational Therapist'S Assistant: Dr. Jaren Figueredo ([facility]) Review of Systems - Review of Systems All systems: reviewed and no additional remarkable complaints except - Respiratory Respiratory: Dyspnea, Wheezing Past Patient History - Past Social History Smoking Status: Never Smoked - CARDIAC Hx Hypertension: No - PULMONARY Hx Asthma: Yes - PSYCHIATRIC Hx Substance Use: No - SURGICAL HISTORY Hx Surgeries: No - ANESTHESIA Hx Anesthesia: No Meds - Medications Medications: Current Medications Albuterol Sulfate (Albuterol 0.083% Inhal Essence (2.5 Mg/3 Ml) Ud) 2.5 mg IH Q2 [facility] Last Admin: 06/24/18 10:05 Dose: 2.5 mg Budesonide (Pulmicort Respules) 0.5 mg INH RQ12 [facility] Last Admin: 06/24/18 10:05 Dose: 0.5 mg Lactated Ringer's (Lactated Ringer's) 1,000 mls @ 75 mls/hr IV .[id number] [facility] Last Admin: 06/24/18 10:48 Dose: 75 mls/hr Methylprednisolone (Solu-Medrol) 40 mg IVP Q6H [facility] Last Admin: 06/24/18 10:27 Dose: 40 mg Physical Exam - Constitutional Appears: Non-toxic, No Acute Distress - Head Exam Head Exam: ATRAUMATIC, NORMOCEPHALIC - Eye Exam Eye Exam: EOMI, Normal appearance, PERRL - ENT Exam ENT Exam: Mucous Membranes Moist - Respiratory Exam Respiratory Exam: Accessory Muscle Use, Wheezes - Cardiovascular Exam Cardiovascular Exam: Tachycardia, +S1, +S2. absent: Gallop, Rubs, Systolic Murmur - GI/Abdominal Exam GI & Abdominal Exam: Normal Bowel Sounds Additional comments: Gravid abdomen - Extremities Exam Extremities exam: Positive for: full ROM, normal capillary refill, normal inspection, pedal edema, pedal pulses present - Neurological Exam Neurological exam: Alert, CN II-XII Intact, Oriented x3 - Skin Skin Exam: Dry, Intact, Warm Results - Vital Signs Recent Vital Signs: Last Vital Signs Temp 98.2 F 06/24/18 09:39 Pulse 122 H 06/24/18 09:28 Resp 22 06/24/18 10:16 BP 107/78 06/24/18 09:28 Pulse Ox 100 06/24/18 09:28 - Labs Result Diagrams: 06/24/18 03:53 06/24/18 03:53 Labs: Laboratory Results - last 24 hr 06/24/18 06/24/18 06/24/18 03:45 03:53 03:53 WBC 9.2 RBC 4.01 Hgb 10.7 L Hct 32.9 L MCV 82.1 D MCH 26.7 L MCHC 32.6 L RDW 13.3 Plt Count 208 MPV 11.0 Neut % (Auto) 52.9 Lymph % (Auto) 21.8 [place] % (Auto) 14.0 H Eos % (Auto) 10.7 H Baso % (Auto) 0.6 Neut # (Auto) 4.9 Lymph # (Auto) 2.0 [place] # (Auto) 1.3 H Eos # (Auto) 1.0 H Baso # (Auto) 0.1 pO2 84 H VBG pH 7.38 VBG pCO2 37 L VBG HCO3 22.7 VBG Total CO2 23.0 VBG O2 Sat (Calc) 98.2 H VBG Base Excess -2.8 L VBG Potassium 3.6 Sodium 136.0 134 Chloride 104.0 105 Glucose 98 Lactate 1.1 Potassium 4.1 Carbon Dioxide 22 Anion Gap 11 BUN 5 L Creatinine 0.5 L Est GFR ( Amer) > 60 Est GFR (Non-Af Amer) > 60 Random Glucose 91 D Calcium 9.0 Total Bilirubin 1.2 AST 162 H D ALT 141 H D Alkaline Phosphatase 166 H D Total Protein 7.4 Albumin 3.8 Globulin 3.6 Albumin/Globulin Ratio 1.1 Venous Blood Potassium 3.6 Urine Color Urine Clarity Urine pH Ur Specific [place] Urine Protein Urine Glucose (UA) Urine Ketones Urine Blood Urine Nitrate Urine Bilirubin Urine Urobilinogen Ur Leukocyte Esterase Urine WBC (Auto) Urine RBC (Auto) Ur Squamous Epith Cells Urine Bacteria 06/24/18 05:37 WBC RBC Hgb Hct MCV MCH MCHC RDW Plt Count MPV Neut % (Auto) Lymph % (Auto) [place] % (Auto) Eos % (Auto) Baso % (Auto) Neut # (Auto) Lymph # (Auto) [place] # (Auto) Eos # (Auto) Baso # (Auto) pO2 VBG pH VBG pCO2 VBG HCO3 VBG Total CO2 VBG O2 Sat (Calc) VBG Base Excess VBG Potassium Sodium Chloride Glucose Lactate Potassium Carbon Dioxide Anion Gap BUN Creatinine Est GFR ( Amer) Est GFR (Non-Af Amer) Random Glucose Calcium Total Bilirubin AST ALT Alkaline Phosphatase Total Protein Albumin Globulin Albumin/Globulin Ratio Venous Blood Potassium Urine Color Yellow Urine Clarity Hazy Urine pH 5.0 Ur Specific [place] 1.011 Urine Protein Negative Urine Glucose (UA) Normal Urine Ketones 1+ H Urine Blood Negative Urine Nitrate Negative Urine Bilirubin Negative Urine Urobilinogen 2.0 H Ur Leukocyte Esterase 2+ H Urine WBC (Auto) 18 H Urine RBC (Auto) 7 H Ur Squamous Epith Cells 5 Urine Bacteria Occ H Assessment & Plan - Assessment and Plan (Free Text) Assessment: This is a 38 y o female currently 8 mos , 36 wks 2 d (LUCAS 07/20/18 via 1st trimester U/s), who presented to the ED with c/o worsening shortness of breath and wheezing since last evening. Pt reports positive hx of childhood asthma diagnosed around age 11-12, however denies ever being on rescue inhaler or nebulizer in past. Reason for ICU consult was for status asthmaticus. To be admitted to ICU for further monitoring. Plan: Neuro: -AAOx3 -No gross deficits on exam, cont to monitor Cardio: -Tachycardic on exam, BP stable -CT angio negative for PE -LR at 75 cc/hr -EKG: sinus tachy, possible L atrial enlargement -Echo ordered Pulm: -Status asthmaticus -S/p Mag sulfate and mult albuterol txs in ED with no improvement in symptoms, s/p Solu-Medrol -C/w Solu-Medrol q6h -Albuterol q2h -CXR: no active disease -Pulm consulted (Dr. Lopez), recs appreciated -Pulmicort, Singulair -C/w High Flow, titrate as tolerated -Maintain O2 sat > 92% GI: -Reg diet -NPO for abd U/s -R/o hepatic steatosis -Transaminitis on admission labs -LR at 75 cc/hr -C/w vit and oral iron supplementation Renal: -BUN/Cr wnl -U/a pos for UTI, tx for asymptomatic bacteriuria in -Ceftriaxone 1 g daily -Trend I's/O's ID: -Tx for UTI as noted above -GBS cx as per OB recs Heme: -C/w ferrous sulfate -H/H 10.7/32.9 -No thrombocytopenia, HELLP syndrome less likely OB: -BPP 11/11 -OB consulted (Dr. Posada), recs appreciated Pt seen, examined with, and plan discussed with Dr. De La Cruz, attending physician. Luis Angel Weeks DO PGY-1, [employer] Pager #[phone]
[2018-06-24 11:20] VITALS: BMI 33.3
--- NOTE | 2018-06-24 11:34 | CP.PCM.PN ---
Subjective - Date & Time of Evaluation Date of Evaluation: 06/24/18 Time of Evaluation: 11:33 - Subjective Subjective: H&P dictated #[id number] Objective - Vital Signs/Intake and Output Vital Signs (last 24 hours): Temp Pulse Resp BP Pulse Ox 98.2 F 122 H 22 107/78 100 06/24/18 09:39 06/24/18 09:28 06/24/18 10:16 06/24/18 09:28 06/24/18 09:28 - Medications Medications: Current Medications Albuterol Sulfate (Albuterol 0.083% Inhal Essence (2.5 Mg/3 Ml) Ud) 2.5 mg IH Q2 [facility] Last Admin: 06/24/18 10:05 Dose: 2.5 mg Budesonide (Pulmicort Respules) 0.5 mg INH RQ12 [facility] Last Admin: 06/24/18 10:05 Dose: 0.5 mg Enoxaparin Sodium (Lovenox) 40 mg SC DAILY [facility] Lactated Ringer's (Lactated Ringer's) 1,000 mls @ 75 mls/hr IV .[id number] [facility] Last Admin: 06/24/18 10:48 Dose: 75 mls/hr Ceftriaxone Sodium 1 gm/ (Sodium Chloride) 100 mls @ 100 mls/hr IVPB DAILY [facility]; Protocol Methylprednisolone (Solu-Medrol) 40 mg IVP Q6H [facility] Last Admin: 06/24/18 10:27 Dose: 40 mg - Labs Labs: 06/24/18 03:53 06/24/18 03:53
[2018-06-24] MEDS: Enoxaparin 40 mg Syringe SC SCH (12:26)
[2018-06-24 12:45] LABS: HEPATITIS B SURFACE AG Negative (NEGATIVE)
[2018-06-24 12:55] LABS: HEPATITIS A IGM NEGATIVE (NEGATIVE); HEPATITIS B CORE AB NEGATIVE (NEGATIVE)
[2018-06-24 13:07] LABS: HEPATITIS C ANTIBODY NEGATIVE (NEGATIVE)
[2018-06-24] MEDS ORDERED: Iodixanol 320 MG/ML 100 ML BOTTLE IV ONE (14:46)
--- NOTE | 2018-06-24 16:15 | CT ---
Date of service: 06/24/2018 PROCEDURE: CT Chest with contrast (Pulmonary Angiogram) HISTORY: Rule out PE. COMPARISON: None available. TECHNIQUE: Axial computed tomography images were obtained of the chest in the pulmonary arterial phase of enhancement. Coronal and sagittal reformatted images were created and reviewed. Intravenous contrast dose: 56 cc Visipaque 320 contrast material. Radiation dose: Total exam DLP = 396.59 mGy-cm. This CT exam was performed using one or more of the following dose reduction techniques: Automated exposure control, adjustment of the mA and/or kV according to patient size, and/or use of iterative reconstruction technique. FINDINGS: PULMONARY ARTERIES: Visualized pulmonary trunk, right and left main, lobar, segmental and proximal subsegmental branches of the pulmonary arteries are well opacified with no filling defects seen to suggest acute central pulmonary embolus. The pulmonary trunk measures approximately 2.8 cm. AORTA: No acute findings. No thoracic aortic aneurysm. Ascending thoracic aorta measures 2.9 cm and descending thoracic aorta measures 2.3 cm. No aortic atherosclerotic calcification or mural plaque present. LUNGS: Unremarkable. No nodule, mass or pulmonary consolidation. PLEURAL SPACES: Unremarkable. No effusion or pneumothorax. HEART: Heart size is borderline/mildly enlarged.. No significant pericardial effusion. LYMPH NODES: No lymphadenopathy.. Trachea midline and patent with no large central endoluminal lesions. BONES, CHEST WALL: There are calcifications seen at the T6-T7 and T7-T8 disc space margins which could be calcifications of the posterior annuli and/or calcification of the posterior longitudinal ligament that do compress the ventral surfaces of the thecal sac and possibly the spinal cord. There also appears to be varices within the subcutaneous tissues of the chest wall. OTHER FINDINGS: Unremarkable. IMPRESSION: Unremarkable CT pulmonary angiogram. No acute central pulmonary embolus. Are calcifications seen at the T6-T7 and T7-T8 disc space margins which could represent calcifications of the posterior annuli or posterior longitudinal ligament which presumably mildly compress the ventral surface of the thecal sac and possibly the spinal cord.
--- NOTE | 2018-06-24 17:45 | CP.PCM.CON ---
History of Present Illness - History of Present Illness History of Present Illness: Patient is a 38 years old female at 36 weeks with PMHX of Asthma brought in by EMS complaining of SOB that began at 8PM last night. She states that the SOB is not aggravated or alleviated by any factors. She was diagnosed as a child, however does not have any medications. She states that she was recently diagnosed with a urinalysis tract infection, however she was non compliant with the medication she was prescribed. Patient denies Fevers, chills, chest pain, cough, SOB. PMHX: Asthma PSHX: Noncontributory ALL: NKDA MEDS: As per chart SOCIAL: denies tobacco use Physical Exam Oxygen Saturation 100% NC General: NAD Cardio: Tachycardic, S1. S2, No murmurs, rubs, gallops Resp: Wheezing Abd: Soft A/P 1) Asthma Exacerbation -started on Budesonide -Started on Solu-medrol -continue Nebulizer -singulair Past Patient History - Past Social History Smoking Status: Never Smoked - CARDIAC Hx Hypertension: No - PULMONARY Hx Asthma: Yes - MUSCULOSKELETAL/RHEUMATOLOGICAL Hx Falls: Yes (fell last month) - PSYCHIATRIC Hx Substance Use: No - SURGICAL HISTORY Hx Surgeries: No - ANESTHESIA Hx Anesthesia: No Meds Allergies/Adverse Reactions: Allergies Allergy/AdvReac Type Severity Reaction Status Date / Time No Known Allergies Allergy Verified 11/11/16 13:33 - Medications Medications: Current Medications Albuterol Sulfate (Albuterol 0.083% Inhal Essence (2.5 Mg/3 Ml) Ud) 2.5 mg IH RQ2 [facility] Last Admin: 06/24/18 13:54 Dose: 2.5 mg Budesonide (Pulmicort Respules) 0.5 mg INH RQ12 [facility] Last Admin: 06/24/18 10:05 Dose: 0.5 mg Enoxaparin Sodium (Lovenox) 40 mg SC DAILY [facility] Last Admin: 06/24/18 12:26 Dose: 40 mg Lactated Ringer's (Lactated Ringer's) 1,000 mls @ 75 mls/hr IV .[id number] [facility] Last Admin: 06/24/18 10:48 Dose: 75 mls/hr Ceftriaxone Sodium 1 gm/ (Sodium Chloride) 100 mls @ 100 mls/hr IVPB DAILY [facility]; Protocol Last Admin: 06/24/18 12:27 Dose: 100 mls/hr Methylprednisolone (Solu-Medrol) 40 mg IVP Q6H [facility] Last Admin: 06/24/18 16:21 Dose: 40 mg Results - Vital Signs Recent Vital Signs: Last Vital Signs Temp 98.7 F 06/24/18 16:00 Pulse 103 H 06/24/18 17:00 Resp 18 06/24/18 17:00 BP 112/72 06/24/18 16:58 Pulse Ox 100 06/24/18 17:00 - Labs Result Diagrams: 06/24/18 03:53 06/24/18 03:53 Labs: Laboratory Results - last 24 hr 06/24/18 06/24/18 06/24/18 03:45 03:53 03:53 WBC 9.2 RBC 4.01 Hgb 10.7 L Hct 32.9 L MCV 82.1 D MCH 26.7 L MCHC 32.6 L RDW 13.3 Plt Count 208 MPV 11.0 Neut % (Auto) 52.9 Lymph % (Auto) 21.8 Slope % (Auto) 14.0 H Eos % (Auto) 10.7 H Baso % (Auto) 0.6 Neut # (Auto) 4.9 Lymph # (Auto) 2.0 Slope # (Auto) 1.3 H Eos # (Auto) 1.0 H Baso # (Auto) 0.1 pO2 84 H VBG pH 7.38 VBG pCO2 37 L VBG HCO3 22.7 VBG Total CO2 23.0 VBG O2 Sat (Calc) 98.2 H VBG Base Excess -2.8 L VBG Potassium 3.6 Sodium 136.0 134 Chloride 104.0 105 Glucose 98 Lactate 1.1 Potassium 4.1 Carbon Dioxide 22 Anion Gap 11 BUN 5 L Creatinine 0.5 L Est GFR ( Amer) > 60 Est GFR (Non-Af Amer) > 60 Random Glucose 91 D Calcium 9.0 Total Bilirubin 1.2 AST 162 H D ALT 141 H D Alkaline Phosphatase 166 H D NT-Pro-B Natriuret Pep Total Protein 7.4 Albumin 3.8 Globulin 3.6 Albumin/Globulin Ratio 1.1 Venous Blood Potassium 3.6 Urine Color Urine Clarity Urine pH Ur Specific [place] Urine Protein Urine Glucose (UA) Urine Ketones Urine Blood Urine Nitrate Urine Bilirubin Urine Urobilinogen Ur Leukocyte Esterase Urine WBC (Auto) Urine RBC (Auto) Ur Squamous Epith Cells Urine Bacteria Hepatitis A IgM Ab Hep Bs Antigen Hep B Core IgM Ab Hepatitis C Antibody 06/24/18 06/24/18 06/24/18 05:37 11:45 11:45 WBC RBC Hgb Hct MCV MCH MCHC RDW Plt Count MPV Neut % (Auto) Lymph % (Auto) Slope % (Auto) Eos % (Auto) Baso % (Auto) Neut # (Auto) Lymph # (Auto) Slope # (Auto) Eos # (Auto) Baso # (Auto) pO2 VBG pH VBG pCO2 VBG HCO3 VBG Total CO2 VBG O2 Sat (Calc) VBG Base Excess VBG Potassium Sodium Chloride Glucose Lactate Potassium Carbon Dioxide Anion Gap BUN Creatinine Est GFR ( Amer) Est GFR (Non-Af Amer) Random Glucose Calcium Total Bilirubin AST ALT Alkaline Phosphatase NT-Pro-B Natriuret Pep 27.0 Total Protein Albumin Globulin Albumin/Globulin Ratio Venous Blood Potassium Urine Color Yellow Urine Clarity Hazy Urine pH 5.0 Ur Specific [place] 1.011 Urine Protein Negative Urine Glucose (UA) Normal Urine Ketones 1+ H Urine Blood Negative Urine Nitrate Negative Urine Bilirubin Negative Urine Urobilinogen 2.0 H Ur Leukocyte Esterase 2+ H Urine WBC (Auto) 18 H Urine RBC (Auto) 7 H Ur Squamous Epith Cells 5 Urine Bacteria Occ H Hepatitis A IgM Ab Negative Hep Bs Antigen Negative Hep B Core IgM Ab Negative Hepatitis C Antibody Negative
--- NOTE | 2018-06-25 00:31 | HP ---
CHIEF COMPLAINT: Progressive worsening of shortness of breath and wheezing for two days. HISTORY OF PRESENTING ILLNESS: Ms. Soria is a 38-year-old young female with past medical history of asthma, diagnosed when she was 12 years old, but did not have any acute asthma exacerbations in the recent years who is 8 months' as per the patient, following up with [facility]. Her expected delivery date as per the patient is 07/20/2018, came into the emergency room with complaints of cough for the past 2 days, progressively getting worse and started having shortness of breath and wheezing, progressively getting worse and unable to breathe. Denies any fever. She came into the emergency room, and in the emergency room, the patient was given multiple treatments including magnesium sulfate and the patient did not respond to all the treatments and the patient is being admitted to the telemetry and later upgraded as the patient's symptoms remained persistent tachypnea and tachycardia, and the patient is upgraded to intensive care unit. When I examined the patient in the ICU, the patient is in mild distress. Denies any headache, dizziness. Denies any chest pain, but complaining of shortness of breath with minimal exertion. Denies any nausea, vomiting, abdominal pain, diarrhea or constipation. Denies any urinary complaints. Denies any leg pains or leg cramps. Denies any other neurologic symptoms. PAST MEDICAL HISTORY: Asthma. PAST SURGICAL HISTORY: Denies any past surgical history. FAMILY HISTORY: Noncontributory to the present illness. PERSONAL HISTORY: She is , having 3 live children and this is her fourth . She is working at a [employer]. SOCIAL HISTORY: Denies smoking, alcohol or drug abuse. ALLERGIES: NO KNOWN DRUG ALLERGIES. HOME MEDICATIONS: None at home other than . REVIEW OF SYSTEMS: As described in the history of present illness. All other systems reviewed and were found to be negative. PHYSICAL EXAMINATION: GENERAL: A young female, lying in bed, in mild distress. VITAL SIGNS: Blood pressure 113/63, pulse 110, respirations 19, temperature 98.4 degrees Fahrenheit, O2 sat is 99% on nasal cannula. HEENT: Pupils equal, round, reacting to light and accommodation. Extraocular muscles intact. No icterus. No pallor. No oral thrush. No pharyngeal congestion. NECK: Supple. No JVD. LUNGS: Bilateral vesicular breath sounds. Decreased bilateral wheezing heard. CARDIOVASCULAR: S1 and S2 present, regular. ABDOMEN: Soft and nontender. Bowel sounds present. No guarding. No rigidity. No rebound tenderness noted. GENITOURINARY: Uterus extended above the umbilicus. CENTRAL NERVOUS SYSTEM: Alert, awake, oriented x3. No focal deficits noted. EXTREMITIES: No edema. Palpable peripheral pulses. LABORATORY DATA: Labs done from ED, WBC 9.2, hemoglobin 10.7, hematocrit 32.9, platelets 208. ABG; pH 7.38, pCO2 of 37, pO2 of 84, lactate 1.1, sodium 134, potassium 4.1, chloride of 105, bicarb 22, BUN 5, creatinine 0.5, glucose 91, calcium 9, total bilirubin 1.2, AST 162, ALT 141, alkaline phosphatase 166, proBNP 27, total protein 7.4, albumin 3.8. UA; specific gravity 1.011, pH 5, ketone 1+, urobilinogen 2+, leukocyte esterase 2+, WBC 18. Hepatitis serology negative. Chest x-ray done from the emergency room shows no active pulmonary disease. CT chest negative for PE. EKG consistent with sinus tachycardia at 117 beats per minute, nonspecific ST-T changes. Echocardiogram report pending. Ultrasound of the fetus consistent with single live intrauterine gestation of approximately 36 weeks 2 days gestational age, cephalic presentation, heart 144 beats per minute. ASSESSMENT: Young female with history of asthma in the third trimester , admitted for acute asthma exacerbation. Did not respond to treatment in the emergency room and the patient is being monitored in intensive care unit. 1. Acute asthma exacerbation. 2. Third trimester . PLAN: The patient is being admitted to ICU. We will continue with Solu-Medrol, bronchodilators and Rocephin was added 1 g IV daily, DVT prophylaxis with Lovenox, IV fluids normal saline at 75 mL/hour. I will follow up with echocardiogram support. LABEL SEWER input appreciated. Discussed with critical care attending and pulmonary attending. We will monitor the patient closely. Further recommendations as her clinical course progresses. Melodie Levine MD [facility] # [id number]
[2018-06-25] MEDS: Albuterol 0.083% Inhal Sol (2.5 mg/3 mL) UD IH SCH ×3 (00:42→06:24)
[2018-06-25] MEDS: Lactated Ringer's 1,000 ML IV SCH ×3 (02:44→17:52)
[2018-06-25] MEDS: MethylPREDNISolone 40 mg Vial IVP SCH ×4 (04:41→17:48)
[2018-06-25] MEDS ORDERED: Albuterol 0.083% Inhal Sol (2.5 mg/3 mL) UD INH PRN (06:19)
[2018-06-25 06:37] LABS: BASO % 0.1 % (0.0-2.0); EOS % 0.1 % (0.0-4.0); HEMOGLOBIN 9.6 g/dL (11.0-16.0); LYMPH # 1.6 K/uL (1.0-4.3); MEAN CELL VOLUME 83.9 fL (81.0-99.0); MEAN CORPUSCULAR HEMOGLOBIN 27.3 pg (27.0-31.0); MEAN CORPUSCULAR HGB CONC 32.5 g/dL (33.0-37.0); MEAN PLATELET VOLUME 10.4 fL (7.2-11.7); MONO # 1.1 K/uL (0.0-0.8); MONO % 10.2 % (0.0-10.0); NEUT # 7.9 K/uL (1.8-7.0); NEUT % 74.6 % (50.0-75.0); NRBC % 0.1 % (0.0-2.0); RBC 3.5 Mil/uL (3.80-5.20); RED CELL DISTRIBUTION WIDTH 13.6 % (11.5-14.5); WHITE BLOOD COUNT 10.5 K/uL (4.8-10.8)
[2018-06-25 07:22] LABS: ALB/GLOB RATIO 1.1 (1.0-2.1); ALBUMIN 3.3 g/dL (3.5-5.0); ALT/SGPT 158 U/L (9-52); AST/SGOT 154 U/L (14-36); BLOOD UREA NITROGEN 4 mg/dL (7-17); CALCIUM 9.1 mg/dl (8.6-10.4); GFR NON-AFRICAN AMERICAN > 60
[2018-06-25] MEDS: Budesonide 0.5 mg/2 ml Inhal Susp UD INH SCH ×2 (08:23→20:11)
[2018-06-25] MEDS ORDERED: Lactated Ringer's 500 ML IV ONE (09:06)
[2018-06-25] MEDS ORDERED: MethylPREDNISolone 40 mg Vial IVP SCH (09:30)
--- NOTE | 2018-06-25 09:33 | CP.PCM.PN ---
Subjective - Date & Time of Evaluation Date of Evaluation: 06/25/18 Time of Evaluation: 09:33 - Subjective Subjective: Progress note dictated #[id number] Objective - Vital Signs/Intake and Output Vital Signs (last 24 hours): Temp Pulse Resp BP Pulse Ox 97.7 F 110 H 22 105/69 99 06/25/18 08:00 06/25/18 09:02 06/25/18 09:02 06/25/18 09:02 06/25/18 09:02 Intake and Output: 06/25/18 06/25/18 06:59 18:59 Intake Total 1240 225 Output Total 850 200 Balance 390 25 - Medications Medications: Current Medications Albuterol Sulfate (Albuterol 0.083% Inhal Essence (2.5 Mg/3 Ml) Ud) 2.5 mg INH RQ6 PRN PRN Reason: shartness of breath/wheezing Budesonide (Pulmicort Respules) 0.5 mg INH RQ12 [facility] Last Admin: 06/25/18 08:23 Dose: 0.5 mg Enoxaparin Sodium (Lovenox) 40 mg SC DAILY [facility] Last Admin: 06/24/18 12:26 Dose: 40 mg Ferrous Sulfate (Feosol) 325 mg PO DAILY [facility] Last Admin: 06/25/18 09:22 Dose: 325 mg Lactated Ringer's (Lactated Ringer's) 1,000 mls @ 75 mls/hr IV .[id number] [facility] Last Admin: 06/25/18 02:44 Dose: 75 mls/hr Ceftriaxone Sodium 1 gm/ (Sodium Chloride) 100 mls @ 100 mls/hr IVPB DAILY [facility]; Protocol Last Admin: 06/25/18 09:20 Dose: 100 mls/hr Lactated Ringer's (Lactated Ringer's) 500 mls @ 1,000 mls/hr IV .Q30M ONE Stop: 06/25/18 09:35 Last Admin: 06/25/18 09:18 Dose: 1,000 mls/hr Methylprednisolone (Solu-Medrol) 40 mg IVP Q6H [facility] Last Admin: 06/25/18 09:20 Dose: 40 mg Montelukast Sodium (Singulair) 10 mg PO HS [facility] Last Admin: 06/24/18 22:00 Dose: 10 mg - Labs Labs: 06/25/18 06:25 06/25/18 07:05
[2018-06-25 09:36] LABS: SQUAMOUS EPITHIAL 1 /hpf (0-5); URINE BACTERIA RARE (<OCC); URINE BILIRUBIN NEGATIVE (NEGATIVE); URINE BLOOD NEGATIVE (NEGATIVE); URINE CLARITY Clear (Clear); URINE COLOR Yellow (YELLOW); URINE GLUCOSE (UA) NORMAL (Normal); URINE LEUKOCYTE ESTERASE NEG Leu/uL (Negative); URINE PROTEIN NEGATIVE (NEGATIVE); URINE UROBILINOGEN NORMAL mg/dL (0.2-1.0)
[2018-06-25] MEDS: Enoxaparin 40 mg Syringe SC SCH (10:41)
--- NOTE | 2018-06-25 10:47 | CP.PCM.PN ---
<Raghavendra Gambino - Last Filed: 06/25/18 11:26> Subjective - Date & Time of Evaluation Date of Evaluation: 06/25/18 Time of Evaluation: 10:43 - Subjective Subjective: PGY-1 OB Progress note for Dr. Tucker Patient seen and examined at bedside. Patient complains of pressure in her abdomen when her bladder is full. She admits to feeling movements. Denies having any vaginal bleeding/discharge, fevers, chills, chest pain, nausea, vomiting, diarrhea, or dysuria. Objective - Vital Signs/Intake and Output Vital Signs (last 24 hours): Temp Pulse Resp BP Pulse Ox 97.7 F 111 H 22 115/78 99 06/25/18 08:00 06/25/18 10:01 06/25/18 10:13 06/25/18 10:01 06/25/18 10:01 Intake and Output: 06/25/18 06/25/18 06:59 18:59 Intake Total 1240 1175 Output Total 850 200 Balance 390 975 - Medications Medications: Current Medications Albuterol Sulfate (Albuterol 0.083% Inhal Essence (2.5 Mg/3 Ml) Ud) 2.5 mg INH RQ6 PRN PRN Reason: shartness of breath/wheezing Budesonide (Pulmicort Respules) 0.5 mg INH RQ12 [facility] Last Admin: 06/25/18 08:23 Dose: 0.5 mg Ferrous Sulfate (Feosol) 325 mg PO DAILY [facility] Last Admin: 06/25/18 09:22 Dose: 325 mg Lactated Ringer's (Lactated Ringer's) 1,000 mls @ 75 mls/hr IV .[id number] [facility] Last Admin: 06/25/18 02:44 Dose: 75 mls/hr Ceftriaxone Sodium 1 gm/ (Sodium Chloride) 100 mls @ 100 mls/hr IVPB DAILY [facility]; Protocol Last Admin: 06/25/18 09:20 Dose: 100 mls/hr Methylprednisolone (Solu-Medrol) 20 mg IVP Q8H [facility] Montelukast Sodium (Singulair) 10 mg PO HS [facility] Last Admin: 06/24/18 22:00 Dose: 10 mg - Labs Labs: 06/25/18 06:25 06/25/18 07:05 - Additional Findings Additional findings: - Constitutional Appears: Well, Non-toxic, No Acute Distress - Head Exam Head Exam: NORMAL INSPECTION, NORMOCEPHALIC - Eye Exam Eye Exam: EOMI, Normal appearance Pupil Exam: PERRL - ENT Exam ENT Exam: Mucous Membranes Moist, Normal Exam - Respiratory Exam Respiratory Exam: Wheezes - Cardiovascular Exam Cardiovascular Exam: Tachycardia, +S1, +S2 - GI/Abdominal Exam GI & Abdominal Exam: Distended (Appropriate for ) - Exam External exam: NORMAL EXTERNAL EXAM Additional comments: 1cm 50% effacement -3 station - Extremities Exam Extremities exam: Positive for: pedal edema (trace) - Neurological Exam Neurological exam: Alert, Oriented x3 - Psychiatric Exam Psychiatric exam: Normal Affect, Normal Mood - Skin Skin Exam: Dry, Intact, Warm Assessment and Plan - Assessment and Plan (Free Text) Assessment: 38 y/o [place] female with IUP at 36wk 3d (confirmed by u/s) with [facility] 06/28/18 presenting with acute onset asthma exacerbation. Patient is not in active labor. OB consulted for assessment. Plan: - NST performed at bedside. FHR 140's with moderate variability, +accels, no decels - Repeat UA negative for signs of infection - IV fluids: LR 500cc bolus - Continue pre- multivitamins and oral iron supplementations - Continue to monitor closely - Continue medical care per ICU team - Further recommendations per Dr. Tucker Patient seen, examined, and case discussed with attending physician, Dr. Garrett Gambino, PGY-1 <Tasia Tucker - Last Filed: 06/25/18 14:41> Subjective - Subjective Subjective: Addendum At time of NST there was noted irregular contractions and a SVE was performed" /-3 Pt was not feeling the contractions and a bolus of fluid was recommended as well as an UA Will remove from monitor when NST completed Pt n Stable and Satisfactory condition. Discussed with [employer] Developer Pt seen and examined with Dr. Mabry and agreed with his findings and POC. Objective - Vital Signs/Intake and Output Vital Signs (last 24 hours): Temp Pulse Resp BP Pulse Ox 98.1 F 126 H 19 116/78 100 06/25/18 12:00 06/25/18 13:02 06/25/18 14:00 06/25/18 13:02 06/25/18 13:02 Intake and Output: 06/25/18 06/25/18 06:59 18:59 Intake Total 1240 1400 Output Total 850 200 Balance 390 1200 - Medications Medications: Current Medications Albuterol Sulfate (Albuterol 0.083% Inhal Essence (2.5 Mg/3 Ml) Ud) 2.5 mg INH RQ6 PRN PRN Reason: shartness of breath/wheezing Budesonide (Pulmicort Respules) 0.5 mg INH RQ12 [facility] Last Admin: 06/25/18 08:23 Dose: 0.5 mg Ferrous Sulfate (Feosol) 325 mg PO DAILY [facility] Last Admin: 06/25/18 09:22 Dose: 325 mg Lactated Ringer's (Lactated Ringer's) 1,000 mls @ 75 mls/hr IV .[id number] [facility] Last Admin: 06/25/18 02:44 Dose: 75 mls/hr Ceftriaxone Sodium 1 gm/ (Sodium Chloride) 100 mls @ 100 mls/hr IVPB DAILY [facility]; Protocol Last Admin: 06/25/18 09:20 Dose: 100 mls/hr Methylprednisolone (Solu-Medrol) 20 mg IVP Q8H [facility] Last Admin: 06/25/18 10:45 Dose: Not Given Montelukast Sodium (Singulair) 10 mg PO HS [facility] Last Admin: 06/24/18 22:00 Dose: 10 mg - Labs Labs: 06/25/18 06:25 06/25/18 07:05
--- NOTE | 2018-06-25 10:52 | US ---
Date of service: 06/24/2018 HISTORY: r/o fatty liver COMPARISON: None. TECHNIQUE: Sonographic evaluation of the abdomen. FINDINGS: LIVER: Measures 14.3 cm. Diffusely increased echogenicity of the liver parenchyma. Consistent with fatty infiltration. Smooth contour. No mass. No biliary dilatation. Normal hepatopetal portal venous flow. GALLBLADDER: No cholelithiasis. Sludge. No mural thickening. No pericholecystic fluid. Negative sonographic Harris sign. COMMON BILE DUCT: Measures 3 mm. No stones. No dilatation. PANCREAS: Unremarkable as visualized. No mass. No ductal dilatation. RIGHT KIDNEY: Measures 11.7cm. Normal echogenicity. No calculus or hydronephrosis. Lower pole simple cortical cyst, 9 mm. LEFT KIDNEY: Measures 10.0cm. Normal echogenicity. No calculus, mass, or hydronephrosis. SPLEEN: Normal in size and contour. No mass. AORTA: No aneurysmal dilatation. IVC: Unremarkable. OTHER FINDINGS: None. IMPRESSION: No evidence of cholelithiasis or cholecystitis. Mild fatty infiltration of the liver. 9 mm right lower pole simple cortical cyst. The preliminary findings for this examination were reported by [facility] at 9:16 p.m. on 06/24/2018. There is concurrence of this report with the preliminary findings.
--- NOTE | 2018-06-25 13:55 | CP.CCUPN ---
<Luis Angel Weeks - Last Filed: 06/25/18 14:30> CCU Subjective - Physician Review Subjective (Free Text): ICU Progress Note for Dr. De La Cruz Pt seen and examined at bedside this am. States her shortness of breath has improved compared to yesterday. Denies feeling any contractions currently. No acute events reported overnight by staff. Albuterol and Solu-Medrol being tapered down. High Flow being tapered down. CCU Objective - Vital Signs / Intake & Output Vital Signs (Last 4 hours): Vital Signs Temp Pulse Resp BP Pulse Ox 06/25/18 13:02 126 H 19 116/78 100 06/25/18 13:00 120 H 21 100 06/25/18 12:03 108 H 20 116/54 L 100 06/25/18 12:00 98.1 F 110 H 23 99 06/25/18 11:02 120 H 24 108/52 L 98 06/25/18 11:00 109 H 19 99 06/25/18 10:13 22 06/25/18 10:01 111 H 16 115/78 99 06/25/18 10:00 127 H 19 99 Intake and Output (Last 8hrs): Intake & Output 06/24/18 06/25/18 06/25/18 22:59 06:59 14:59 Intake Total 446 504 1985 Output Total 550 750 200 Balance 390 -50 1200 Weight 168 lb 8 oz Intake: Intake, IV Amount 441 033 9041 Left Hand 300 0 Right Antecubital 500 Right Forearm 400 600 550 Oral 240 100 350 Output: Urine 550 750 200 Urine, Voided 550 750 200 Other: # Voids Urine, Voided 1 0 # Bowel Movements 1 0 - Physical Exam Head: Positive for: Atraumatic, Normocephalic Pupils: Positive for: PERRL Extroacular Muscles: Positive for: EOMI Conjunctiva: Positive for: Normal Mouth: Positive for: Moist Mucous Membranes Respiratory/Chest: Positive for: Wheezes. Negative for: Respiratory Distress, Accessory Muscle Use Cardiovascular: Positive for: Normal S1, S2, Tachycardic. Negative for: Murmurs, Rub, Gallop Abdomen: Positive for: Normal Bowel Sounds, Other (gravid abdomen) Upper Extremity: Positive for: Normal Inspection, Normal ROM, NORMAL PULSES, Neurovascularly Intact, Capillary Refill < 2s. Negative for: Cyanosis Lower Extremity: Positive for: Normal Inspection, NORMAL PULSES, Normal ROM, Neurovascularly Intact, Capillary Refill < 2 s Neurological: Positive for: GCS=15, CN II-XII Intact Skin: Positive for: Warm, Dry, Normal Color Psychiatric: Positive for: Alert, Oriented x 3 - Medications Active Medications: Active Medications Generic Name Dose Route Start Last Admin Trade Name Freq PRN Reason Stop Dose Admin Albuterol Sulfate 2.5 mg 06/25/18 06:19 Albuterol 0.083% Inhal Essence (2.5 Mg/3 Ml) Ud INH RQ6 PRN shartness of breath/wheezing Budesonide 0.5 mg 06/24/18 08:00 06/25/18 08:23 Pulmicort Respules INH 0.5 mg RQ12 DUANE Administration Ferrous Sulfate 325 mg 06/25/18 10:00 06/25/18 09:22 Feosol PO 325 mg DAILY DUANE Administration Lactated Ringer's 1,000 mls @ 75 mls/hr 06/24/18 10:30 06/25/18 02:44 Lactated Ringer's IV 75 mls/hr .[id number] DUANE Administration Ceftriaxone Sodium 1 gm/ 100 mls @ 100 mls/hr 06/24/18 11:30 06/25/18 09:20 Sodium Chloride IVPB 100 mls/hr DAILY DUANE Administration Protocol Methylprednisolone 20 mg 06/25/18 10:15 06/25/18 10:45 Solu-Medrol IVP Not Given Q8H DUANE Montelukast Sodium 10 mg 06/24/18 22:00 06/24/18 22:00 Singulair PO 10 mg HS DUANE Administration - Patient Studies Lab Studies: Microbiology Studies 06/24/18 10:09 MRSA Culture (Admit) - Final Naris MRSA NOT DETECTED 06/24/18 09:44 Group B Streptococcus Culture - Preliminary Unknown SUBCULTURE [facility]ENS BROTH Lab Studies 06/25/18 06/25/18 06/25/18 Range/Units 09:28 07:05 06:25 WBC 10.5 (4.8-10.8) K/uL RBC 3.50 L (3.80-5.20) Mil/uL Hgb 9.6 L (11.0-16.0) g/dL Hct 29.4 L (34.0-47.0) % MCV 83.9 (81.0-99.0) fL MCH 27.3 (27.0-31.0) pg MCHC 32.5 L (33.0-37.0) g/dL RDW 13.6 (11.5-14.5) % Plt Count 184 (130-400) K/uL MPV 10.4 (7.2-11.7) fL Neut % (Auto) 74.6 (50.0-75.0) % Lymph % (Auto) 15.0 L (20.0-40.0) % Mcdonough % (Auto) 10.2 H (0.0-10.0) % Eos % (Auto) 0.1 (0.0-4.0) % Baso % (Auto) 0.1 (0.0-2.0) % Neut # (Auto) 7.9 H (1.8-7.0) K/uL Lymph # (Auto) 1.6 (1.0-4.3) K/uL Mcdonough # (Auto) 1.1 H (0.0-0.8) K/uL Eos # (Auto) 0.0 (0.0-0.7) K/uL Baso # (Auto) 0.0 (0.0-0.2) K/uL Sodium 136 (132-148) mmol/L Potassium 4.2 (3.6-5.2) mmol/L Chloride 107 (98-107) mmol/L Carbon Dioxide 21 L (22-30) mmol/L Anion Gap 12 (10-20) BUN 4 L (7-17) mg/dL Creatinine 0.5 L (0.7-1.2) mg/dL Est GFR ( Amer) > 60 Est GFR (Non-Af Amer) > 60 Random Glucose 111 H D (65-105) mg/dL Calcium 9.1 (8.6-10.4) mg/dl Phosphorus 3.7 (2.5-4.5) mg/dL Magnesium 1.8 (1.6-2.3) mg/dL Total Bilirubin 0.6 (0.2-1.3) mg/dL AST 154 H (14-36) U/L ALT 158 H (9-52) U/L Alkaline Phosphatase 151 H (38-126) U/L Total Protein 6.4 (6.3-8.3) g/dL Albumin 3.3 L (3.5-5.0) g/dL Globulin 3.1 (2.2-3.9) gm/dL Albumin/Globulin Ratio 1.1 (1.0-2.1) Urine Color Yellow (YELLOW) Urine Clarity Clear (Clear) Urine pH 6.0 (5.0-8.0) Ur Specific [place] 1.012 (1.003-1.030) Urine Protein Negative (NEGATIVE) mg/dL Urine Glucose (UA) Normal (Normal) mg/dL Urine Ketones 1+ H (NEGATIVE) mg/dL Urine Blood Negative (NEGATIVE) Urine Nitrate Negative (NEGATIVE) Urine Bilirubin Negative (NEGATIVE) Urine Urobilinogen Normal (0.2-1.0) mg/dL Ur Leukocyte Esterase Neg (Negative) Natalia/uL Urine WBC (Auto) 1 (0-5) /hpf Urine RBC (Auto) 1 (0-3) /hpf Ur Squamous Epith Cells 1 (0-5) /hpf Urine Bacteria Rare (<OCC) Laboratory Results - last 24 hr 06/25/18 06/25/18 06/25/18 06:25 07:05 09:28 WBC 10.5 RBC 3.50 L Hgb 9.6 L Hct 29.4 L MCV 83.9 MCH 27.3 MCHC 32.5 L RDW 13.6 Plt Count 184 MPV 10.4 Neut % (Auto) 74.6 Lymph % (Auto) 15.0 L Mcdonough % (Auto) 10.2 H Eos % (Auto) 0.1 Baso % (Auto) 0.1 Neut # (Auto) 7.9 H Lymph # (Auto) 1.6 Mcdonough # (Auto) 1.1 H Eos # (Auto) 0.0 Baso # (Auto) 0.0 Sodium 136 Potassium 4.2 Chloride 107 Carbon Dioxide 21 L Anion Gap 12 BUN 4 L Creatinine 0.5 L Est GFR ( Amer) > 60 Est GFR (Non-Af Amer) > 60 Random Glucose 111 H D Calcium 9.1 Phosphorus 3.7 Magnesium 1.8 Total Bilirubin 0.6 AST 154 H ALT 158 H Alkaline Phosphatase 151 H Total Protein 6.4 Albumin 3.3 L Globulin 3.1 Albumin/Globulin Ratio 1.1 Urine Color Yellow Urine Clarity Clear Urine pH 6.0 Ur Specific [place] 1.012 Urine Protein Negative Urine Glucose (UA) Normal Urine Ketones 1+ H Urine Blood Negative Urine Nitrate Negative Urine Bilirubin Negative Urine Urobilinogen Normal Ur Leukocyte Esterase Neg Urine WBC (Auto) 1 Urine RBC (Auto) 1 Ur Squamous Epith Cells 1 Urine Bacteria Rare Radiology Impressions: Radiology Impressions Chest CT 06/24/18 10:21 IMPRESSION: Unremarkable CT pulmonary angiogram. No acute central pulmonary embolus. Are calcifications seen at the T6-T7 and T7-T8 disc space margins which could represent calcifications of the posterior annuli or posterior longitudinal ligament which presumably mildly compress the ventral surface of the thecal sac and possibly the spinal cord. Abdomen Ultrasound 06/24/18 10:31 IMPRESSION: No evidence of cholelithiasis or cholecystitis. Mild fatty infiltration of the liver. 9 mm right lower pole simple cortical cyst. The preliminary findings for this examination were reported by [facility] Radiology at 9:16 p.m. on 06/24/2018. There is concurrence of this report with the preliminary findings. Review of Systems - Constitutional Constitutional: absent: Fever, Chills, Sweats, Weakness - EENT Eyes: absent: Change in Vision - Cardiovascular Cardiovascular: absent: Chest Pain, Pain Radiating to Arm/Neck/Jaw, Palpitations, Syncope - Respiratory Respiratory: Dyspnea, Wheezing. absent: Cough - Gastrointestinal Gastrointestinal: absent: Abdominal Pain, Constipation, Diarrhea, Nausea, Vomiting Critical Care Progress Note - Nutrition Nutrition: Nutrition Category Date Time Status Regular Diet [DIET] Diets 06/24/18 Lunch Active Assessment/Plan - Assessment and Plan (Free Text) Assessment: 38 y o female currently 36 wks 3 d, who presented to the ED with c/o worsening shortness of breath and wheezing since the evening prior. Pt reports positive hx of childhood asthma diagnosed around age 11-12, however denies ever being on rescue inhaler or nebulizer in past. Pt admitted to ICU currently for management of status asthmaticus. Plan: Neuro: -AAOx3 -No gross deficits on exam, cont to monitor Cardio: -Tachycardic on exam, BP stable -CT angio negative for PE -LR at 75 cc/hr -EKG: sinus tachy, possible L atrial enlargement -Echo done, results pending Pulm: -Status asthmaticus -S/p Mag sulfate and mult albuterol txs in ED with no improvement in symptoms, s/p Solu-Medrol -Improving clinically today -Solu-Medrol decreased to 20 mg q8h -Albuterol q6h prn -CXR: no active disease -Pulm consulted (Dr. Lopez), recs appreciated -Pulmicort, Singulair -C/w High Flow, titrate down as tolerated -Maintain O2 sat > 92% GI: -Reg diet -Abd U/s: No evidence of cholelithiasis or cholecystitis. Mild fatty infiltration of the liver. 9 mm R lower pole simple cortical cyst. -Transaminitis -LR at 75 cc/hr -C/w vit and oral iron supplementation Renal: -BUN/Cr wnl -U/a pos for UTI; repeat U/a today neg for signs of infection; tx for asymptomatic bacteriuria in for total 3 days -Ceftriaxone 1 g daily -Trend I's/O's ID: -Tx for UTI as noted above -GBS cx as per OB recs -Afebrile Heme: -C/w ferrous sulfate -H/H 9.6/29.4 -No thrombocytopenia, HELLP syndrome less likely OB: -BPP 11/11 -OB consulted (Dr. Posada), recs appreciated -NST Pt seen, examined with, and plan discussed with Dr. De La Cruz, attending physician. Luis Angel Weeks DO PGY-1, Education Reviewer Pager #[phone] <Fish De La Cruz - Last Filed: 06/25/18 14:51> CCU Objective - Vital Signs / Intake & Output Vital Signs (Last 4 hours): Vital Signs Temp Pulse Resp BP Pulse Ox 06/25/18 14:04 101 H 19 94/49 L 96 06/25/18 14:00 103 H 15 100 06/25/18 13:02 126 H 19 116/78 100 06/25/18 13:00 120 H 21 100 06/25/18 12:03 108 H 20 116/54 L 100 06/25/18 12:00 98.1 F 110 H 23 99 06/25/18 11:02 120 H 24 108/52 L 98 06/25/18 11:00 109 H 19 99 Intake and Output (Last 8hrs): Intake & Output 06/24/18 06/25/18 06/25/18 22:59 06:59 14:59 Intake Total 502 512 0497 Output Total 550 750 200 Balance 390 -50 1395 Weight 168 lb 8 oz Intake: Intake, IV Amount 272 369 3624 Left Hand 300 0 Right Antecubital 500 Right Forearm 400 600 625 Oral 240 100 470 Output: Urine 550 750 200 Urine, Voided 550 750 200 Other: # Voids Urine, Voided 1 2 # Bowel Movements 1 0 - Medications Active Medications: Active Medications Generic Name Dose Route Start Last Admin Trade Name Freq PRN Reason Stop Dose Admin Albuterol Sulfate 2.5 mg 06/25/18 06:19 Albuterol 0.083% Inhal Essence (2.5 Mg/3 Ml) Ud INH RQ6 PRN shartness of breath/wheezing Budesonide 0.5 mg 06/24/18 08:00 06/25/18 08:23 Pulmicort Respules INH 0.5 mg RQ12 DUANE Administration Ferrous Sulfate 325 mg 06/25/18 10:00 06/25/18 09:22 Feosol PO 325 mg DAILY DUANE Administration Lactated Ringer's 1,000 mls @ 75 mls/hr 06/24/18 10:30 06/25/18 14:41 Lactated Ringer's IV Not Given .[id number] DUANE Ceftriaxone Sodium 1 gm/ 100 mls @ 100 mls/hr 06/24/18 11:30 06/25/18 09:20 Sodium Chloride IVPB 100 mls/hr DAILY DUANE Administration Protocol Methylprednisolone 20 mg 06/25/18 10:15 06/25/18 10:45 Solu-Medrol IVP Not Given Q8H DUANE Montelukast Sodium 10 mg 06/24/18 22:00 06/24/18 22:00 Singulair PO 10 mg HS DUANE Administration - Patient Studies Lab Studies: Microbiology Studies 06/24/18 10:09 MRSA Culture (Admit) - Final Naris MRSA NOT DETECTED 06/24/18 09:44 Group B Streptococcus Culture - Preliminary Unknown SUBCULTURE [place] BROTH Lab Studies 06/25/18 06/25/18 06/25/18 Range/Units 09:28 07:05 06:25 WBC 10.5 (4.8-10.8) K/uL RBC 3.50 L (3.80-5.20) Mil/uL Hgb 9.6 L (11.0-16.0) g/dL Hct 29.4 L (34.0-47.0) % MCV 83.9 (81.0-99.0) fL MCH 27.3 (27.0-31.0) pg MCHC 32.5 L (33.0-37.0) g/dL RDW 13.6 (11.5-14.5) % Plt Count 184 (130-400) K/uL MPV 10.4 (7.2-11.7) fL Neut % (Auto) 74.6 (50.0-75.0) % Lymph % (Auto) 15.0 L (20.0-40.0) % Mcdonough % (Auto) 10.2 H (0.0-10.0) % Eos % (Auto) 0.1 (0.0-4.0) % Baso % (Auto) 0.1 (0.0-2.0) % Neut # (Auto) 7.9 H (1.8-7.0) K/uL Lymph # (Auto) 1.6 (1.0-4.3) K/uL Mcdonough # (Auto) 1.1 H (0.0-0.8) K/uL Eos # (Auto) 0.0 (0.0-0.7) K/uL Baso # (Auto) 0.0 (0.0-0.2) K/uL Sodium 136 (132-148) mmol/L Potassium 4.2 (3.6-5.2) mmol/L Chloride 107 (98-107) mmol/L Carbon Dioxide 21 L (22-30) mmol/L Anion Gap 12 (10-20) BUN 4 L (7-17) mg/dL Creatinine 0.5 L (0.7-1.2) mg/dL Est GFR ( Amer) > 60 Est GFR (Non-Af Amer) > 60 Random Glucose 111 H D (65-105) mg/dL Calcium 9.1 (8.6-10.4) mg/dl Phosphorus 3.7 (2.5-4.5) mg/dL Magnesium 1.8 (1.6-2.3) mg/dL Total Bilirubin 0.6 (0.2-1.3) mg/dL AST 154 H (14-36) U/L ALT 158 H (9-52) U/L Alkaline Phosphatase 151 H (38-126) U/L Total Protein 6.4 (6.3-8.3) g/dL Albumin 3.3 L (3.5-5.0) g/dL Globulin 3.1 (2.2-3.9) gm/dL Albumin/Globulin Ratio 1.1 (1.0-2.1) Urine Color Yellow (YELLOW) Urine Clarity Clear (Clear) Urine pH 6.0 (5.0-8.0) Ur Specific [place] 1.012 (1.003-1.030) Urine Protein Negative (NEGATIVE) mg/dL Urine Glucose (UA) Normal (Normal) mg/dL Urine Ketones 1+ H (NEGATIVE) mg/dL Urine Blood Negative (NEGATIVE) Urine Nitrate Negative (NEGATIVE) Urine Bilirubin Negative (NEGATIVE) Urine Urobilinogen Normal (0.2-1.0) mg/dL Ur Leukocyte Esterase Neg (Negative) Natalia/uL Urine WBC (Auto) 1 (0-5) /hpf Urine RBC (Auto) 1 (0-3) /hpf Ur Squamous Epith Cells 1 (0-5) /hpf Urine Bacteria Rare (<OCC) Laboratory Results - last 24 hr 06/25/18 06/25/18 06/25/18 06:25 07:05 09:28 WBC 10.5 RBC 3.50 L Hgb 9.6 L Hct 29.4 L MCV 83.9 MCH 27.3 MCHC 32.5 L RDW 13.6 Plt Count 184 MPV 10.4 Neut % (Auto) 74.6 Lymph % (Auto) 15.0 L Mcdonough % (Auto) 10.2 H Eos % (Auto) 0.1 Baso % (Auto) 0.1 Neut # (Auto) 7.9 H Lymph # (Auto) 1.6 Mcdonough # (Auto) 1.1 H Eos # (Auto) 0.0 Baso # (Auto) 0.0 Sodium 136 Potassium 4.2 Chloride 107 Carbon Dioxide 21 L Anion Gap 12 BUN 4 L Creatinine 0.5 L Est GFR ( Amer) > 60 Est GFR (Non-Af Amer) > 60 Random Glucose 111 H D Calcium 9.1 Phosphorus 3.7 Magnesium 1.8 Total Bilirubin 0.6 AST 154 H ALT 158 H Alkaline Phosphatase 151 H Total Protein 6.4 Albumin 3.3 L Globulin 3.1 Albumin/Globulin Ratio 1.1 Urine Color Yellow Urine Clarity Clear Urine pH 6.0 Ur Specific [place] 1.012 Urine Protein Negative Urine Glucose (UA) Normal Urine Ketones 1+ H Urine Blood Negative Urine Nitrate Negative Urine Bilirubin Negative Urine Urobilinogen Normal Ur Leukocyte Esterase Neg Urine WBC (Auto) 1 Urine RBC (Auto) 1 Ur Squamous Epith Cells 1 Urine Bacteria Rare Radiology Impressions: Radiology Impressions Chest CT 06/24/18 10:21 IMPRESSION: Unremarkable CT pulmonary angiogram. No acute central pulmonary embolus. Are calcifications seen at the T6-T7 and T7-T8 disc space margins which could represent calcifications of the posterior annuli or posterior longitudinal ligament which presumably mildly compress the ventral surface of the thecal sac and possibly the spinal cord. Abdomen Ultrasound 06/24/18 10:31 IMPRESSION: No evidence of cholelithiasis or cholecystitis. Mild fatty infiltration of the liver. 9 mm right lower pole simple cortical cyst. The preliminary findings for this examination were reported by [facility] Radiology at 9:16 p.m. on 06/24/2018. There is concurrence of this report with the preliminary findings. Critical Care Progress Note - Nutrition Nutrition: Nutrition Category Date Time Status Regular Diet [DIET] Diets 06/24/18 Lunch Active Attending/Attestation - Attestation I have personally seen and examined this patient.: Yes I have fully participated in the care of the patient.: Yes I have reviewed all pertinent clinical information: Yes Notes (Text): 06/25/18 14:47 I have seen and examined the patient. Medical records, lab studies, and imaging were reviewed by me and a management plan was formulated on multidisciplinary rounds with resident Dr. Weeks. I agree with their documented assessment and plan. Asthma now under control, continue singulair, decreased steroids, albuterol prn. Patient was having Bjorn Montano contractions earlier today, assessed by OB assistant corporate controller. Clinically stable for downgrade to the medical floors. Critical Care Time 35 minutes. Multi-disciplinary rounds were performed with house staff, nursing, speech therapy, respiratory therapy, pharmacy and nutrition with integrated input from the primary team/attending and other consulting services. The documented time is cumulative and includes review of patient data/exams/labs/chart review and examination of the patient on rounds and throughout the day; time is exclusive of any procedures or teaching time.
--- NOTE | 2018-06-25 14:04 | CP.PCM.PN ---
Subjective - Date & Time of Evaluation Date of Evaluation: 06/25/18 Time of Evaluation: 09:00 - Subjective Subjective: Patient seen and examined Alert, Awake, No acute distress Patient appears to be much improved and is clinically stable Slight Wheezing but much improved Denies fevers, chest pain, SOB, cough, Hemoptysis Afebrile Physical Exam Oxygen Saturation 99% Room General: NAD Cardio: S1. S2. Resp: Wheezing Abd: Soft A/P 1) Asthma Exacerbation -Continue Budesonide -taper Solu-medrol -Continue Nebulizer as needed -singulair Objective - Vital Signs/Intake and Output Vital Signs (last 24 hours): Temp Pulse Resp BP Pulse Ox 98.1 F 126 H 19 116/78 100 06/25/18 12:00 06/25/18 13:02 06/25/18 14:00 06/25/18 13:02 06/25/18 13:02 Intake and Output: 06/25/18 06/25/18 06:59 18:59 Intake Total 1240 1400 Output Total 850 200 Balance 390 1200 - Medications Medications: Current Medications Albuterol Sulfate (Albuterol 0.083% Inhal Essence (2.5 Mg/3 Ml) Ud) 2.5 mg INH RQ6 PRN PRN Reason: shartness of breath/wheezing Budesonide (Pulmicort Respules) 0.5 mg INH RQ12 [facility] Last Admin: 06/25/18 08:23 Dose: 0.5 mg Ferrous Sulfate (Feosol) 325 mg PO DAILY [facility] Last Admin: 06/25/18 09:22 Dose: 325 mg Lactated Ringer's (Lactated Ringer's) 1,000 mls @ 75 mls/hr IV .[id number] [facility] Last Admin: 06/25/18 02:44 Dose: 75 mls/hr Ceftriaxone Sodium 1 gm/ (Sodium Chloride) 100 mls @ 100 mls/hr IVPB DAILY [facility]; Protocol Last Admin: 06/25/18 09:20 Dose: 100 mls/hr Methylprednisolone (Solu-Medrol) 20 mg IVP Q8H [facility] Last Admin: 06/25/18 10:45 Dose: Not Given Montelukast Sodium (Singulair) 10 mg PO HS [facility] Last Admin: 06/24/18 22:00 Dose: 10 mg - Labs Labs: 06/25/18 06:25 06/25/18 07:05
--- NOTE | 2018-06-25 20:36 | PN ---
DATE: 06/25/2018 SUBJECTIVE: The patient is seen and examined at bedside. The patient is feeling much better. Less shortness of breath. Denies any other new complaints. PHYSICAL EXAMINATION: GENERAL: Young female, lying in bed, in no acute distress. VITAL SIGNS: Blood pressure 114/46, pulse 93, respirations 20, temperature 98.2 degrees Fahrenheit, O2 sat is 100% on nasal cannula. HEENT: Pupils equal, round, and reacting to light and accommodation. Extraocular muscles intact. No icterus. No pallor. No oral thrush. No pharyngeal congestion. NECK: Supple. No JVD. LUNGS: Bilateral vesicular breath sounds. No wheezing. No rhonchi. CARDIOVASCULAR SYSTEM: S1 and S2 present, regular. ABDOMEN: Soft and nontender. Bowel sounds present. No guarding. No rigidity. No rebound tenderness noted. CENTRAL NERVOUS SYSTEM: Alert, awake, and oriented x3. No focal deficits noted. EXTREMITIES: No edema. Palpable peripheral pulses. MEDICATIONS: Include albuterol inhaler, Pulmicort 0.5 mg every 12 hours, Rocephin 1 g IV daily, Feosol 325 mg daily, Ringer's lactate 75 mg daily, Solu-Medrol 20 mg IV push every 8 hours, Singulair 10 mg p.o. at bedtime. LABORATORY DATA: Labs from today, WBC 10.5, hemoglobin 9.6, hematocrit 29.4, platelets 184. Sodium 136, potassium 4.2, chloride 107, bicarb 21, BUN 4, creatinine 0.5, glucose 111, calcium 9.1, phosphorus 3.7, magnesium 1.8, AST 154, ALT 158, alkaline phosphatase 151, total protein 6.4, albumin 3.3. UA ketones 1+. Otherwise negative. Hepatitis serology negative. ASSESSMENT AND PLAN: A young female with third trimester , admitted for acute asthma exacerbation, improving on nebulizer treatments. Solu-Medrol decreased to 20 mg IV every 8 hours. Continue with budesonide and Singulair. OB-COOK DESSERT followup and close monitoring of the fetus. We will continue with other current medications. We will add further recommendation as her clinical course progresses. Melodie Levine MD [facility] # [id number]
[2018-06-26] MEDS: MethylPREDNISolone 40 mg Vial IVP SCH ×3 (01:26→17:32)
[2018-06-26] MEDS: Lactated Ringer's 1,000 ML IV SCH ×2 (02:30→08:20)
[2018-06-26 06:34] LABS: BASO % 0.4 % (0.0-2.0); EOS % 0.2 % (0.0-4.0); HEMOGLOBIN 8.9 g/dL (11.0-16.0); LYMPH # 1.6 K/uL (1.0-4.3); LYMPH % 16.5 % (20.0-40.0); MEAN CELL VOLUME 83.9 fL (81.0-99.0); MEAN CORPUSCULAR HEMOGLOBIN 27.2 pg (27.0-31.0); MEAN CORPUSCULAR HGB CONC 32.4 g/dL (33.0-37.0); MEAN PLATELET VOLUME 11.1 fL (7.2-11.7); MONO # 0.8 K/uL (0.0-0.8); MONO % 8.7 % (0.0-10.0); NEUT # 7.1 K/uL (1.8-7.0); NEUT % 74.2 % (50.0-75.0); NRBC % 0.2 % (0.0-2.0); RBC 3.26 Mil/uL (3.80-5.20); RED CELL DISTRIBUTION WIDTH 13.7 % (11.5-14.5); WHITE BLOOD COUNT 9.6 K/uL (4.8-10.8)
[2018-06-26 06:50] LABS: BLOOD UREA NITROGEN 7 mg/dL (7-17)
[2018-06-26 06:51] LABS: ALT/SGPT 208 U/L (9-52); AST/SGOT 203 U/L (14-36); CALCIUM 8.8 mg/dl (8.6-10.4); GFR NON-AFRICAN AMERICAN > 60
[2018-06-26] MEDS: Budesonide 0.5 mg/2 ml Inhal Susp UD INH SCH (08:25)
--- NOTE | 2018-06-26 09:52 | CP.PCM.PN ---
Subjective - Date & Time of Evaluation Date of Evaluation: 06/26/18 Time of Evaluation: 09:52 - Subjective Subjective: Progress note dictated #[id number] Objective - Vital Signs/Intake and Output Vital Signs (last 24 hours): Temp Pulse Resp BP Pulse Ox 98.4 F 87 22 112/72 99 06/26/18 08:00 06/26/18 08:02 06/26/18 08:02 06/26/18 08:02 06/26/18 08:02 Intake and Output: 06/26/18 06/26/18 06:59 18:59 Intake Total 1440 225 Output Total 801 350 Balance 639 -125 - Medications Medications: Current Medications Albuterol Sulfate (Albuterol 0.083% Inhal Essence (2.5 Mg/3 Ml) Ud) 2.5 mg INH RQ6 PRN PRN Reason: shartness of breath/wheezing Last Admin: 06/26/18 08:25 Dose: 2.5 mg Budesonide (Pulmicort Respules) 0.5 mg INH RQ12 [facility]ANE Last Admin: 06/26/18 08:25 Dose: 0.5 mg Ferrous Sulfate (Feosol) 325 mg PO DAILY [facility] Last Admin: 06/25/18 09:22 Dose: 325 mg Lactated Ringer's (Lactated Ringer's) 1,000 mls @ 75 mls/hr IV .[id number] [facility]ANE Last Admin: 06/26/18 08:20 Dose: 75 mls/hr Ceftriaxone Sodium 1 gm/ (Sodium Chloride) 100 mls @ 100 mls/hr IVPB DAILY DUANE; Protocol Last Admin: 06/25/18 09:20 Dose: 100 mls/hr Methylprednisolone (Solu-Medrol) 20 mg IVP Q8H DUANE Last Admin: 06/26/18 01:26 Dose: 20 mg Montelukast Sodium (Singulair) 10 mg PO HS [facility]ANE Last Admin: 06/25/18 22:29 Dose: 10 mg - Labs Labs: 06/26/18 06:28 06/26/18 06:27
[2018-06-26] MEDS ORDERED: Magnesium Sulfate 1 gm in D5W 1 GM/100 ML BAG IVPB ONE (10:53)
[2018-06-26] MEDS: Magnesium Oxide 400 mg Tab UD PO SCH ×2 (11:50→17:33)
--- NOTE | 2018-06-26 15:32 | PN ---
DATE: 06/26/2018 SUBJECTIVE: The patient is seen and examined at bedside. The patient's symptoms clinically improved. Denies any shortness of breath. The cough is much less. Denies any other complaints. PHYSICAL EXAMINATION: GENERAL: An young female, lying in bed, in no acute distress. VITAL SIGNS: Blood pressure 112/72, pulse 85, respirations 20, temperature 98.2 degrees Fahrenheit, O2 sat is 99% on room air. HEENT: Pupils equal, round, and reacting to light and accommodation. Extraocular muscles intact. No icterus. No pallor. No oral thrush. No pharyngeal congestion. NECK: Supple. No JVD. LUNGS: Bilateral vesicular breath sounds. Improved breath sounds. Occasional wheezing. No rhonchi. CARDIOVASCULAR SYSTEM: S1 and S2 present, regular. ABDOMEN: Soft and nontender. Bowel sounds present. Uterus distended below the costal margin. CENTRAL NERVOUS SYSTEM: Alert, awake, and oriented x3. No focal deficits noted. EXTREMITIES: No edema. Palpable peripheral pulses. MEDICATIONS: Nebulizer treatment, budesonide, Rocephin 1 g daily, Feosol 325 mg daily, Ringer's lactate 75 mL an hour, magnesium oxide 400 mg p.o. b.i.d., magnesium oxide 1 g daily, Solu-Medrol 20 mg IV every 8 hours, Singulair 10 mg p.o. at bedtime. LABORATORY DATA: Labs from this morning, WBC 9.6, hemoglobin 8.9, hematocrit 27.3, platelets 155. Sodium 134, potassium 3, chloride 104, bicarb 25, BUN 7, creatinine 0.5, glucose 100, calcium 8.8, phosphorus 3.7, magnesium 1.5, AST 203, ALT 208, alkaline phosphatase 129, total protein 5.8, albumin 3. ASSESSMENT AND PLAN: A young female with past medical history of asthma with third trimester , admitted for acute asthma exacerbation, clinically improving on intravenous Solu-Medrol, nebulizer treatments, budesonide. We will continue with current medications. Followup with Pulmonary. If cleared by Pulmonary, the patient may be transferred to Obstetrics Floor for further obstetric care. If the patient is cleared by Obstetrics also, we will plan discharging the patient home and advised the patient to follow up with Obstetrics as recommended. Melodie Levine MD [facility] # [id number]
--- NOTE | 2018-06-26 17:31 | CP.PCM.PN ---
Subjective - Date & Time of Evaluation Date of Evaluation: 06/26/18 Time of Evaluation: 17:00 - Subjective Subjective: Patient seen and examined Breathing much improved Denies cough, denies fever chills Sitting comfortably in no distress Objective - Vital Signs/Intake and Output Vital Signs (last 24 hours): Temp Pulse Resp BP Pulse Ox 97.8 F 96 H 20 106/65 99 06/26/18 12:00 06/26/18 14:00 06/26/18 14:00 06/26/18 13:52 06/26/18 14:00 Intake and Output: 06/26/18 06/26/18 06:59 18:59 Intake Total 1440 1367.5 Output Total 801 1550 Balance 639 -182.5 - Medications Medications: Current Medications Albuterol Sulfate (Albuterol 0.083% Inhal Essence (2.5 Mg/3 Ml) Ud) 2.5 mg INH RQ6 PRN PRN Reason: shartness of breath/wheezing Last Admin: 06/26/18 08:25 Dose: 2.5 mg Budesonide (Pulmicort Respules) 0.5 mg INH RQ12 [facility] Last Admin: 06/26/18 08:25 Dose: 0.5 mg Ferrous Sulfate (Feosol) 325 mg PO DAILY [facility] Last Admin: 06/26/18 09:57 Dose: 325 mg Lactated Ringer's (Lactated Ringer's) 1,000 mls @ 75 mls/hr IV .[id number] [facility] Last Admin: 06/26/18 08:20 Dose: 75 mls/hr Ceftriaxone Sodium 1 gm/ (Sodium Chloride) 100 mls @ 100 mls/hr IVPB DAILY [facility]; Protocol Last Admin: 06/26/18 09:58 Dose: 100 mls/hr Magnesium Oxide (Mag-Ox) 400 mg PO BID [facility] Last Admin: 06/26/18 11:50 Dose: 400 mg Methylprednisolone (Solu-Medrol) 20 mg IVP Q8H [facility] Last Admin: 06/26/18 09:57 Dose: 20 mg Montelukast Sodium (Singulair) 10 mg PO HS [facility] Last Admin: 06/25/18 22:29 Dose: 10 mg - Labs Labs: 06/26/18 06:28 06/26/18 06:27 - Head Exam Head Exam: ATRAUMATIC, NORMOCEPHALIC - ENT Exam ENT Exam: Mucous Membranes Moist - Neck Exam Neck Exam: Normal Inspection - Respiratory Exam Respiratory Exam: Clear to Ausculation Bilateral - Cardiovascular Exam Cardiovascular Exam: REGULAR RHYTHM - GI/Abdominal Exam GI & Abdominal Exam: Soft, Normal Bowel Sounds Assessment and Plan (1) Asthma affecting in third trimester Assessment & Plan: Continue albuterol as needed Singulair Low-dose prednisone in tapering dose Brio Ellipta 200 mcg once daily Follow-up in the office Stable to go home Status: Acute
[2018-06-26 17:43] VITALS: BP 109/71; PULSE 99; RESP 15; TEMP 97.2; O2SAT 94
--- NOTE | 2018-06-26 18:10 | CP.PCM.PN ---
Objective - Vital Signs/Intake and Output Vital Signs (last 24 hours): Temp Pulse Resp BP Pulse Ox 97.2 F L 99 H 15 109/71 94 L 06/26/18 16:00 06/26/18 16:08 06/26/18 16:08 06/26/18 16:08 06/26/18 16:08 Intake and Output: 06/26/18 06/26/18 06:59 18:59 Intake Total 1440 2032.5 Output Total 801 1950 Balance 639 82.5 - Medications Medications: Current Medications Albuterol Sulfate (Albuterol 0.083% Inhal Essence (2.5 Mg/3 Ml) Ud) 2.5 mg INH RQ6 PRN PRN Reason: shartness of breath/wheezing Last Admin: 06/26/18 08:25 Dose: 2.5 mg Budesonide (Pulmicort Respules) 0.5 mg INH RQ12 [facility] Last Admin: 06/26/18 08:25 Dose: 0.5 mg Ferrous Sulfate (Feosol) 325 mg PO DAILY [facility] Last Admin: 06/26/18 09:57 Dose: 325 mg Lactated Ringer's (Lactated Ringer's) 1,000 mls @ 75 mls/hr IV .[id number] [facility] Last Admin: 06/26/18 08:20 Dose: 75 mls/hr Ceftriaxone Sodium 1 gm/ (Sodium Chloride) 100 mls @ 100 mls/hr IVPB DAILY [facility]; Protocol Last Admin: 06/26/18 09:58 Dose: 100 mls/hr Magnesium Oxide (Mag-Ox) 400 mg PO BID [facility] Last Admin: 06/26/18 17:33 Dose: 400 mg Methylprednisolone (Solu-Medrol) 20 mg IVP Q8H [facility] Last Admin: 06/26/18 17:32 Dose: 20 mg Montelukast Sodium (Singulair) 10 mg PO HS [facility] Last Admin: 06/25/18 22:29 Dose: 10 mg - Labs Labs: 06/26/18 06:28 06/26/18 06:27 Assessment and Plan - Assessment and Plan (Free Text) Assessment: Patient is seen and examined. Alert and orientedx3, no acute wheezing or distress. Discharging home as per DR Lopez and DR Levine. All the prescriptions given, advised to follow up with PMD on Thursday.
--- NOTE | 2018-06-27 20:27 | CARD ---
APPROVED REPORT Date of service: 06/24/2018 EKG Measurement Heart [id number] <Conclusion> Sinus tachycardia Possible Left atrial enlargement Nonspecific ST and T wave abnormality Abnormal ECG
--- NOTE | 2018-06-29 00:44 | CARD ---
APPROVED REPORT Date of service: 06/24/2018 EXAM: Two-dimensional and M-mode echocardiogram with Doppler and color Doppler. Other Information Quality : GoodRhythm : INDICATION Cardiomyopathy r/o peripartum cardiomyopathy 2D DIMENSIONS IVSd1.3 (0.7-1.1cm)LVDd4.3 (3.9-5.9cm) PWd1.1 (0.7-1.1cm)LA Czimfv48 (18-58mL) LVDs2.5 (2.5-4.0cm)FS (%) 41.5 % LVEF (%)72.7 (>50%)LVEF (Brown's)64.16 % IVC0.00 cm M-Mode DIMENSIONS RVDd1.66 (2.1-3.2cm)Left Atrium (MM)3.91 (2.5-4.0cm) IVSd1.02 (0.7-1.1cm)Aortic Root2.83 (2.2-3.7cm) LVDd4.76 (4.0-5.6cm)Aortic Cusp Exc.1.99 (1.5-2.0cm) PWd1.02 (0.7-1.1cm)FS (%) 40 % LVDs2.86 (2.0-3.8cm)LVEF (%)71 (>50%) Mitral Valve MV E Qnpwrdka59.8cm/sMV A Qhhaliwf34.0cm/sE/A ratio1.0 TDI Lateral E' Peak V17.19cm/sMedial E' Peak V9.13cm/sE/Lateral E'5.0 E/Medial E'9.4 Tricuspid Valve TR Peak Tnkpdqka713ug/sTR Peak Gr.36oxTxNIXH60wnLu LEFT VENTRICLE The left ventricle is normal size. There is normal left ventricular wall thickness. Left ventricle systolic function is normal. The Ejection Fraction is >70%. There is normal LV segmental wall motion. The left ventricular diastolic function is normal. No left ventricle thrombus noted on this study. RIGHT VENTRICLE The right ventricle is normal size. The right ventricular systolic function is normal. ATRIA The left atrium size is normal. The right atrium size is normal. AORTIC VALVE The aortic valve is trileaflet. No aortic regurgitation is present. There is no aortic valvular stenosis. There is no aortic valvular vegetation. MITRAL VALVE Mitral annular calcification is mild. There is no evidence of mitral valve prolapse. There is no mitral valve stenosis. There is no mitral valve regurgitation noted. TRICUSPID VALVE The tricuspid valve is normal in structure. There is mild tricuspid regurgitation. Right ventricular systolic pressure is estimated at less than 30 mmHg. There is no pulmonary hypertension. There is no tricuspid valve prolapse or vegetation. There is no tricuspid valve stenosis. PULMONIC VALVE The pulmonic valve is not well visualized. There is no pulmonic valvular regurgitation. GREAT VESSELS The aortic root is normal in size. The IVC is normal in size and collapses >50% with inspiration. PERICARDIAL EFFUSION There is no pericardial effusion. There is moderate pleural effusion. <Conclusion> The left ventricle is normal size. Left ventricle systolic function is normal. The Ejection Fraction is >70%. The left ventricular diastolic function is normal. The right ventricle is normal size. The right ventricular systolic function is normal. The left atrium size is normal. The right atrium size is normal. There is mild tricuspid regurgitation.
== END 2018-06-26 19:30 | disposition home or self-care (01) ==
LOC: C.ER 03:01 → C.9E 06:21 → OBSVTOIN 08:15 → C.9E 08:15 → C.9I 08:50
PROVIDERS: ADMIT Internal Medicine; ATTEND Internal Medicine
DX: O99.513 Diseases of the respiratory system complicating pregnancy, third trimester (principal); J45.902 Unspecified asthma with status asthmaticus; Z3A.36 36 weeks gestation of pregnancy; Z87.09 Personal history of other diseases of the respiratory system; K76.0 Fatty (change of) liver, not elsewhere classified; Z91.14 Patient's other noncompliance with medication regimen

== ENCOUNTER 2018-07-14 17:25 | Inpatient (IN) | payer MEDICAID ==
[2018-07-14 17:41] VITALS: BMI 33.2
[2018-07-14] MEDS ORDERED: Lactated Ringer's 1,000 ML IV ONE (17:41)
[2018-07-14 18:09] LABS: BASO # 0.1 K/uL (0.0-0.2); BASO % 0.8 % (0.0-2.0); EOS # 1.4 K/uL (0.0-0.7); EOS % 11.6 % (0.0-4.0); HEMOGLOBIN 10.6 g/dL (11.0-16.0); LYMPH # 2.4 K/uL (1.0-4.3); MEAN CORPUSCULAR HEMOGLOBIN 25.5 pg (27.0-31.0); MEAN CORPUSCULAR HGB CONC 31.9 g/dL (33.0-37.0); MEAN PLATELET VOLUME 11.1 fL (7.2-11.7); MONO # 1.2 K/uL (0.0-0.8); MONO % 9.8 % (0.0-10.0); NEUT % 57.8 % (50.0-75.0); NRBC % 0.4 % (0.0-2.0); RBC 4.13 Mil/uL (3.80-5.20); RED CELL DISTRIBUTION WIDTH 14.3 % (11.5-14.5); WHITE BLOOD COUNT 12.2 K/uL (4.8-10.8)
[2018-07-14 18:25] LABS: BARBITURATES, UR NEGATIVE (NEGATIVE); BENZODIAZEPINES, UR NEGATIVE (NEGATIVE); OPIATES, UR NEGATIVE (NEGATIVE); PHENCYCLIDINE, UR NEGATIVE (NEGATIVE); SQUAMOUS EPITHIAL 7 /hpf (0-5); URINE BACTERIA OCC (<OCC); URINE BILIRUBIN NEGATIVE (NEGATIVE); URINE BLOOD 3+ (NEGATIVE); URINE CLARITY Hazy (Clear); URINE COLOR Amber (YELLOW); URINE GLUCOSE (UA) NORMAL (Normal); URINE LEUKOCYTE ESTERASE 3+ Leu/uL (Negative); URINE PROTEIN 2+ mg/dL (NEGATIVE)
[2018-07-14 18:27] LABS: ALB/GLOB RATIO 1.1 (1.0-2.1); ALBUMIN 3.7 g/dL (3.5-5.0); ALT/SGPT 19 U/L (9-52); AST/SGOT 21 U/L (14-36); BLOOD UREA NITROGEN 2 mg/dL (7-17); CALCIUM 8.7 mg/dl (8.6-10.4); GFR NON-AFRICAN AMERICAN > 60
[2018-07-14] MEDS ORDERED: Fentanyl/Bupivacaine HCl 250 ML EPI ONE (18:39)
[2018-07-14] MEDS ORDERED: Penicillin G Potassium 5 MU in Dextrose 5% In Water 50 ML IV ONE (19:00)
[2018-07-14] MEDS ORDERED: Oxytocin 30 UNIT in NS 500 ml 30 UNITS/500 ML BAG IV SCH (19:30)
[2018-07-14] MEDS: Lactated Ringer's 1,000 ML IV SCH (20:00)
--- NOTE | 2018-07-14 22:11 | OBHP ---
Datetime: 07/14/2018 22:00 Contraction Comments Provider: q2-3 min Vital Signs Provider: Reviewed NICHD Variability Prov Fetus A: Moderate 6-25bpm Dilatation, Provider: Anterior lip Effacement, Provider: 100 Station, Provider: -2 Datetime: 07/14/2018 21:16 FHR - Baseline A Provider: 135 Amniotic Fluid Color, Provider: Clear Membranes, Provider: Ruptured NICHD Accel Fetus A IP Provider: 15X15 FHR Category Provider Fetus A: Category I NICHD Decel Fetus A IP Provider: Early Datetime: 07/14/2018 17:54 IP Adm Impression: Term, intrauterine ; Active labor IP Admit Plan: Admit to unit Admit Comment, IP Provider: Patient is a 38 year old at 40w4d LUCAS 07/20/18 by 18w0d who prese nts to the unit for uterine contractions. Patient states that contractions started 2 hours prior to a rrival and have gotten stronger. Patient endorses +FM, denies VB or LOF. Patient goes to [facility] for p renatal care but had missed the last few appointments. 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/17 [facility] 14 x regular x 5 days History of fibroids Denies history of ovarian cysts or abnormal pap smears Allergies: NKDA Medications: Denies Medical History: Denies Surgical History: Denies Social History: Denies Family History: Mother - healthy; Father - healthy PE: see above A/P: 38 year old at 39w1d who presents in active labor, GBS positive -Admit to the unit -NST is reactive -Admission labs : CBC, CMP, T+S, UA, UDS -Lactated ringers bolus and maintence fluids -GBS positive : Pen G 5 MMU x 1, Pen G 2.5 MMU q4h until delivery -Anesthesia consulted for epidural -Anticipate vaginal delivery Plan discussed with Dr Garrett Suazo DO PGY-2 Pt seen and examined with Dr. Suazo and agree with all of her findings and POC. Comments, ACOG Physical Exam: Gen: AAOx3, uncomfortable Abd: Soft, gravid Ext: No clubbing, cyanosis, edema Last US 05/13/18 at 30w3d -Cephalic presentation -CLARISSA 21.75cm -EFW 1546g +/- 232g -Anterior placenta IP Hx Assessment: The History has been Reviewed and is Current EGA AdmitDate IP: 39.1 IP Chief Complaint: Uterine contractions Datetime: 05/13/2018 09:50 Gestation - Est Wks by US: 30.2
--- NOTE | 2018-07-14 22:18 | OBADHP ---
Datetime: 07/14/2018 22:00 FHR - Baseline A Provider: 130 Amniotic Fluid Color, Provider: Clear Membranes, Provider: Ruptured Contraction Comments Provider: q2-3 min Vital Signs Provider: Reviewed NICHD Variability Prov Fetus A: Moderate 6-25bpm NICHD Accel Fetus A IP Provider: 15X15 Dilatation, Provider: Anterior lip Effacement, Provider: 100 Station, Provider: -2 Datetime: 07/14/2018 21:16 FHR Category Provider Fetus A: Category I NICHD Decel Fetus A IP Provider: Early Datetime: 07/14/2018 17:54 Admit Comment, IP Provider: Patient is a 38 year old at 40w4d LUCAS 07/20/18 by 18w0d who prese nts to the unit for uterine contractions. Patient states that contractions started 2 hours prior to a rrival and have gotten stronger. Patient endorses +FM, denies VB or LOF. Patient goes to [facility] for p renatal care but had missed the last few appointments. 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 [facility] 14 x regular x 5 days History of fibroids Denies history of ovarian cysts or abnormal pap smears Allergies: NKDA Medications: Denies Medical History: Denies Surgical History: Denies Social History: Denies Family History: Mother - healthy; Father - healthy PE: see above A/P: 38 year old at 39w1d who presents in active labor, GBS positive -Admit to the unit -NST is reactive -Admission labs : CBC, CMP, T+S, UA, UDS -Lactated ringers bolus and maintence fluids -GBS positive : Pen G 5 MMU x 1, Pen G 2.5 MMU q4h until delivery -Anesthesia consulted for epidural -Anticipate vaginal delivery Plan discussed with Dr Garrett Suazo DO PGY-2 Pt seen and examined with Dr. Suazo and agree with all of her findings and POC. Comments, ACOG Physical Exam: Gen: AAOx3, uncomfortable Abd: Soft, gravid Ext: No clubbing, cyanosis, edema Last US 05/13/18 at 30w3d -Cephalic presentation -CLARISSA 21.75cm -EFW 1546g +/- 232g -Anterior placenta IP Hx Assessment: The History has been Reviewed and is Current IP Chief Complaint: Uterine contractions EGA AdmitDate IP: 39.1 IP Adm Impression: Term, intrauterine ; Active labor IP Admit Plan: Admit to unit
--- NOTE | 2018-07-14 22:32 | OBPN ---
Datetime: 07/14/2018 22:00 IP Progress Impression: Normal progression of labor IP Procedures: Sterile Vag Exam IP Progress Plan: Continue present management; Augmentation Membranes, Provider: Ruptured Amniotic Fluid Color, Provider: Clear Contraction Comments Provider: q2-3 min FHR - Baseline A Provider: 130 Vital Signs Provider: Reviewed NICHD Accel Fetus A IP Provider: 15X15 NICHD Variability Prov Fetus A: Moderate 6-25bpm Dilatation, Provider: Anterior lip Effacement, Provider: 100 Station, Provider: -2 Datetime: 07/14/2018 21:16 FHR Category Provider Fetus A: Category I NICHD Decel Fetus A IP Provider: Early Datetime: 07/14/2018 19:05 IP Progress Note Comment: Patient seen and examined at bedside. She is s/p epidural. Still having pa in. Vital signs reviewed SVE: /-1 A/P: Patient is a 38 year old at 39w1d in active labor -Continue present management -Continue Penicillin G 2.5mg Q4H until delivery -Plan for AROM -Anticipate vaginal delivery Plan discussed with Dr Garrett Suazo DO PGY-2 Pt seen and examined with Dr. Suazo and agree with her findings and POC. Datetime: 05/13/2018 09:50 IP Progress Impression Other: premature contractions Gestation - Est Wks by US: 30.2
--- NOTE | 2018-07-14 22:35 | OBPN ---
Datetime: 07/14/2018 19:19 IP Progress Note Comment: Patient seen and examined at bedside. Patient feeling more relief after th e epidural. Offers no complaints at this time. AROM with small amount of clear fluid. Vital signs reviewed SVE: 8100/-1 FHT's reassuring Cx's Q 2-3 minutes A/P: 38 year old at 39w1d in active labor, s/p AROM -Continue present management -GBS positive - continue Pen G 2.5 MMU q4H until delivery -Anticipate vaginal delivery Plan discussed with Dr Garrett Suazo DO PGY-2
--- NOTE | 2018-07-14 22:42 | OBPN ---
Datetime: 07/14/2018 22:00 IP Progress Note Comment: Patient seen and examined at bedside. Patient reports feeling pressure. SVE: anterior lip/100/-2 A/P: Patient is a 38 year old at 39w1d in active labor, Pitocin on 5 MMU/min -Continue pitocin for augmentation -GBS positive on Penicillin G 2.5 MMU q4H until delivery - tracing reassuring -Hope for a vaginal delivery Plan discussed with Dr Garrett Suazo DO PGY-2 Pt seen and examined with Dr. Suazo and agree with her findings and POC.
[2018-07-14] MEDS ORDERED: Penicillin G Potassium 2.5 MU in Dextrose 5% In Water 50 ML IV SCH (23:00)
[2018-07-14] MEDS ORDERED: cefOXitin IV 2 gm in Dextrose 2 GM/50 ML BAG IVPB ONE (23:34)
[2018-07-14] MEDS ORDERED: Sodium Citrate/Citric Acid 15 ml Sol PO ONE (23:34)
[2018-07-15] MEDS ORDERED: Sodium Citrate/Citric Acid 15 ml Sol ONE (00:05)
[2018-07-15] MEDS ORDERED: cefOXitin IV 2 gm in Dextrose 2 GM/50 ML BAG IVPB ONE (00:07)
[2018-07-15] MEDS ORDERED: Oxytocin 10 Units/ml Inj ONE ×2 (00:08→01:32)
[2018-07-15] MEDS ORDERED: Morphine 1 mg/ml preservative-free Inj(Duramorph) ONE (01:11)
[2018-07-15] MEDS ORDERED: Oxycodone/Acetaminophen 5/325 mg Tab PO PRN (02:43)
--- NOTE | 2018-07-15 03:00 | OBPN ---
Datetime: 07/14/2018 23:30 IP Progress Impression: Arrest of dilatation/descent; Reassuring heart rate IP Informed Consent Obtain: Section Delivery IP Procedures: Sterile Vag Exam IP Progress Plan: Deliver- Section Membranes, Provider: Ruptured Contraction Comments Provider: Q2 mins FHR - Baseline A Provider: 140 Gestation - Est Wks by US: 39.1 Presentation-Admit: Vertex IP Progress Note Comment: Pt seen and examined SVE unchanged for the past 2 hours with arrest of descend and large caput tracing reassuring Discussed with patient the need for a Section delivery. The procedure, risks and possible complications were fully reviewed and all of her questions were answered to her full satisfaction and she requested to proceed and signed the consent. Anesthesia and OR aware and will proceed when ready NICHD Accel Fetus A IP Provider: 10X10 FHR Category Provider Fetus A: Category I NICHD Variability Prov Fetus A: Moderate 6-25bpm Dilatation, Provider: 10 Effacement, Provider: 100 Station, Provider: -2 NICHD Decel Fetus A IP Provider: None
--- NOTE | 2018-07-15 03:13 | OBDS ---
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 Apgars 9_9 and BW 8lbs, 8oz. Cord Blood and cord pH obtained and sent Placenta with 3 vessel cord sent to Pathology EBL 1000 mls from multiple bleeders Large fundal fibroid Pt and both tolerated the procedure well and left the OR in Stable and Satisfactory condit ion Dr. Bradley S assisted me throught the entire procedure, from beginning to end. Business Development Associate in attendance LABOR SUMMARY EDC: 07/20/2018 00:00 No. Babies in Womb: 1 Attempted: No Labor Anesthesia: Epidural LABOR INFORMATION Reason for Induction: Not Applicable Complete Dilatation: 07/14/2018 22:53 Group B Beta Strep: Positive MEMBRANES Membranes Rupture Method: Artificial Rupture of Membranes: 07/14/2018 19:13 Length of Rupture (hrs): 6.27 Amniotic Fluid Color: Clear Amniotic Fluid Amount: Moderate Amniotic Fluid Odor: Normal STAGES OF LABOR Stage 2 hrs: 2 Stage 2 min: 36 Stage 3 hrs: 0 Stage 3 min: 1 CSECTION DELIVERY Primary Indication: Arrest of Descent CSection Incision: Lower Uterine Transverse BABY A INFORMATION Infant Delivery Date/Time: 07/15/2018 01:29 Method of Delivery: Born in Route : No : N/A Forceps: N/A Vacuum Extraction: N/A SHOULDER DYSTOCIA BABY A Infant Delivery Date/Time: 07/15/2018 01:29 PRESENTATION/POSITION BABY A Presentation: Cephalic Cephalic Presentation: Vertex Breech Presentation: N/A PLACENTA INFORMATION BABY A Placenta Delivery Time : 07/15/2018 01:30 Placenta Method of Delivery: Manual Removal Placenta Status: Delivered INFORMATION BABY A Gestational Age at Delivery: 39.2 Gestational Status: Term Infant Outcome : Liveborn Infant Condition : Stable Infant Sex: Female IDENTIFICATION/MEDS BABY A ID Band Number: [id number] ID Band Location: Left Leg; Left Arm Sensor Applied: Yes Sensor Number: [id number] Sensor Location : Cord Clamp Vitamin K Given : Not Given Erythromycin Given: Not Given WEIGHT/LENGTH BABY A Birthweight (gms): 3855 Infant Weight (lb): 8 Infant Weight (oz): 8 Infant Length Inches: 19.00 Infant Length cms: 48.3 CORD INFORMATION BABY A No. Cord Vessels: #3 Nuchal Cord : N/A Cord Blood Taken: Yes Suction: None
[2018-07-15 03:44] LABS: BASO # 0.1 K/uL (0.0-0.2); BASO % 0.2 % (0.0-2.0); EOS # 0.6 K/uL (0.0-0.7); EOS % 2.5 % (0.0-4.0); LYMPH # 2.4 K/uL (1.0-4.3); LYMPH % 9.7 % (20.0-40.0); MEAN CELL VOLUME 82.2 fL (81.0-99.0); MEAN CORPUSCULAR HGB CONC 30.4 g/dL (33.0-37.0); MEAN PLATELET VOLUME 10.8 fL (7.2-11.7); MONO # 2.5 K/uL (0.0-0.8); MONO % 9.9 % (0.0-10.0); NEUT # 19.4 K/uL (1.8-7.0); NEUT % 77.7 % (50.0-75.0); NRBC % 0.1 % (0.0-2.0); PLATELET COUNT 126 K/uL (130-400); RBC 2.11 Mil/uL (3.80-5.20); RED CELL DISTRIBUTION WIDTH 14.5 % (11.5-14.5); WHITE BLOOD COUNT 24.9 K/uL (4.8-10.8)
[2018-07-15 03:50] LABS: HEMOGLOBIN 5.3 g/dL (11.0-16.0)
[2018-07-15 04:02] LABS: URINE BILIRUBIN NEGATIVE (NEGATIVE); URINE BLOOD 3+ (NEGATIVE); URINE CLARITY Hazy (Clear); URINE COLOR Yellow (YELLOW); URINE GLUCOSE (UA) NORMAL (Normal); URINE LEUKOCYTE ESTERASE 1+ Leu/uL (Negative); URINE PROTEIN NEGATIVE (NEGATIVE); URINE UROBILINOGEN NORMAL mg/dL (0.2-1.0)
[2018-07-15 04:42] LABS: BANDS 4 % (0-2); EOSINOPHIL 1 % (0-4); LYMPHOCYTE 6 % (20-40); MONOCYTE 5 % (0-10); NEUTROPHIL 83 % (50-75); PLATELET ESTIMATE NORMAL (NORMAL); PROMYELOCYTE 1 % (0-0); TOTAL CELLS COUNTED 100
[2018-07-15] MEDS: Lactated Ringer's 1,000 ML IV SCH (06:00)
[2018-07-15] MEDS: Simethicone 80 mg Chewtab PO SCH ×4 (10:27→22:24)
[2018-07-15] MEDS: Prenatal Multivit/Folic Acid/Iron Tab PO SCH (10:28)
[2018-07-15 15:29] LABS: BASO % 0.2 % (0.0-2.0); EOS % 0.1 % (0.0-4.0); LYMPH # 1.2 K/uL (1.0-4.3); LYMPH % 6.3 % (20.0-40.0); MEAN CELL VOLUME 82.3 fL (81.0-99.0); MEAN CORPUSCULAR HEMOGLOBIN 26.5 pg (27.0-31.0); MEAN CORPUSCULAR HGB CONC 32.2 g/dL (33.0-37.0); MEAN PLATELET VOLUME 10.5 fL (7.2-11.7); MONO # 1.7 K/uL (0.0-0.8); MONO % 9.1 % (0.0-10.0); NEUT # 16.2 K/uL (1.8-7.0); NEUT % 84.3 % (50.0-75.0); NRBC % 0.1 % (0.0-2.0); RBC 2.86 Mil/uL (3.80-5.20); RED CELL DISTRIBUTION WIDTH 14.5 % (11.5-14.5); WHITE BLOOD COUNT 19.3 K/uL (4.8-10.8)
[2018-07-15 15:33] LABS: HEMOGLOBIN 7.6 g/dL (11.0-16.0); PLATELET COUNT 116 K/uL (130-400)
[2018-07-15 15:50] LABS: BANDS 20 % (0-2); HYPOCHROMIC SLIGHT; LYMPHOCYTE 4 % (20-40); MONOCYTE 4 % (0-10); NEUTROPHIL 72 % (50-75); PLATELET ESTIMATE SLIGHTLY DECREASED (NORMAL); POLYCHROMIC SLIGHT; TOTAL CELLS COUNTED 100
[2018-07-15 15:52] LABS: GIANT PLATELETS PRESENT; LARGE PLATELETS PRESENT
[2018-07-15] MEDS: Oxycodone/Acetaminophen 5/325 mg Tab PO PRN (22:22)
[2018-07-16 08:04] LABS: BASO % 0.2 % (0.0-2.0); EOS # 0.4 K/uL (0.0-0.7); EOS % 1.8 % (0.0-4.0); HEMOGLOBIN 7.6 g/dL (11.0-16.0); LYMPH % 8.2 % (20.0-40.0); MEAN CELL VOLUME 82.3 fL (81.0-99.0); MEAN CORPUSCULAR HEMOGLOBIN 27.8 pg (27.0-31.0); MEAN CORPUSCULAR HGB CONC 33.7 g/dL (33.0-37.0); MEAN PLATELET VOLUME 10.5 fL (7.2-11.7); MONO # 2.2 K/uL (0.0-0.8); NEUT # 19.7 K/uL (1.8-7.0); NEUT % 80.8 % (50.0-75.0); NRBC % 0.2 % (0.0-2.0); PLATELET COUNT 135 K/uL (130-400); RBC 2.75 Mil/uL (3.80-5.20); RED CELL DISTRIBUTION WIDTH 15.5 % (11.5-14.5); WHITE BLOOD COUNT 24.4 K/uL (4.8-10.8)
[2018-07-16] MEDS: Oxycodone/Acetaminophen 5/325 mg Tab PO PRN (08:09)
[2018-07-16 09:29] LABS: BANDS 10 % (0-2); LYMPHOCYTE 10 % (20-40); NUCLEATED RED BLOOD CELL 1 % (0-0); TOTAL CELLS COUNTED 100
[2018-07-16 09:30] LABS: ANISOCYTOSIS SLIGHT; EOSINOPHIL 1 % (0-4); MONOCYTE 9 % (0-10); NEUTROPHIL 70 % (50-75); PLATELET ESTIMATE NORMAL (NORMAL); POIKILOCYTOSIS SLIGHT
[2018-07-16 09:31] LABS: HYPOCHROMIC SLIGHT; POLYCHROMIC SLIGHT; TARGET CELLS SLIGHT
[2018-07-16 09:32] LABS: LARGE PLATELETS PRESENT; OVALOCYTES SLIGHT
[2018-07-16] MEDS: Simethicone 80 mg Chewtab PO SCH ×4 (09:56→21:47)
[2018-07-16] MEDS: Prenatal Multivit/Folic Acid/Iron Tab PO SCH (09:59)
[2018-07-16 11:54] LABS: MEAN CELL VOLUME 82.2 fL (81.0-99.0); MEAN CORPUSCULAR HEMOGLOBIN 28.3 pg (27.0-31.0); MEAN CORPUSCULAR HGB CONC 34.5 g/dL (33.0-37.0); RBC 2.47 Mil/uL (3.80-5.20); RED CELL DISTRIBUTION WIDTH 15.6 % (11.5-14.5); WHITE BLOOD COUNT 22.8 K/uL (4.8-10.8)
[2018-07-16 12:08] LABS: ALBUMIN 2.2 g/dL (3.5-5.0); BLOOD UREA NITROGEN 7 mg/dL (7-17); CALCIUM 8.9 mg/dl (8.6-10.4); GFR NON-AFRICAN AMERICAN > 60
[2018-07-16 12:09] LABS: ALT/SGPT 19 U/L (9-52); AST/SGOT 36 U/L (14-36)
--- NOTE | 2018-07-16 14:47 | OBPPN ---
Datetime: 07/16/2018 11:26 PP Pain Prov: Within normal limits PP Nausea Prov: Denies PP Flatus Prov: No PP BM Prov: No PP Breasts Prov: Not Done PP Heart Prov: Normal PP Lungs Prov: Normal PP Abdomen/Uterus Prov: Abnormal PP Lochia Prov: Not Done PP Vulva/Perineum Prov: Not Done PP CVA Tenderness Prov: Not Done PP Extremities Prov: Normal PP C/S Incision Prov: Normal PP Progress Prov: Normal PP Comments Phys Exam Prov: Gen: well appearing, mild discomfort CV: RRR w/o murmur Pulm: CTABL; No rales/ronchi/wheezes Abdomen: moderately distended, tender to palpation at the umbilicus, fundal height at 1 fb above t he umbilicus Ext: trace pitting edema of lower extremities b/l Skin: incision site covered with dressing that is clean, dry, intact; no erythema, discharge, or r candis noted. PP Impression Prov: Pain PP Plan Prov: Continue present management PP Impression Other Prov: post hemorrhage vs anemia PP Progress Note Prov: Patient seen and examined at bedside today. No acute overnight events. She re ports abdominal pain at the incision site, 9/10 when sitting up, controlled with Motrin 600mg q6 and Percocet 1 tab q4. She denies any bowel movement or flatus. She is urinating well (200mL in 2 hrs) and hydrating minimally. Moderate lochia. She is tolerating a regular diet. She is breast feeding exclusively with some difficulty. She reports abdominal bloating but denies fever, chills, headache, nausea, vomiting, dysuria, althea turia or lower extremity pain/swelling Vitals reviewed: Tachycardia Labs reviewed: Hb is downtrending 7.0 < 7.6 <7.6 A/P: 38F s/p C/s complicated w/ hemorrhage EBL approx 1000cc Post Care: Continue post care Encourage hydration, ambulation, breast feeding C/w Analgesia C/w [place] C/w Mylicon Post- Hemorrhage: S/p 3U PRBC transfusion total; Hb shows inappropriate correction Evaluate for hemolysis / transfusion reaction Follow up CMP/ LDH Transfuse prbc prn Patient was seen, evaluated, and discussed w/ Attending Dr. 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 Hb 5.3 tp 7.6 to 7.6 to 7 with continued elev of HR. p: t_ cross for 4th unit of cbc pt d/w dr shaw hospitalist recommends periph blood smear of 5.3 blood sample pt ambulating well IP PP Procedures: Transfusion Vital Signs Provider PP: Reviewed Vital Signs Provider Details PP: Persistent tachycardia
--- NOTE | 2018-07-16 18:51 | CT ---
Date of service: 07/16/2018 PROCEDURE: CT Abdomen and Pelvis without intravenous contrast HISTORY: recent hemorrhage; w/ downtrending h/h COMPARISON: 06/24/2018 abdominal ultrasound. TECHNIQUE: Unenhanced. Neither IV nor oral contrast administered Radiation dose: Total exam DLP = 1035.72 mGy-cm. This CT exam was performed using one or more of the following dose reduction techniques: Automated exposure control, adjustment of the mA and/or kV according to patient size, and/or use of iterative reconstruction technique. FINDINGS: LOWER THORAX: Unremarkable. LIVER: Unremarkable. No gross lesion or ductal dilatation. GALLBLADDER AND BILE DUCTS: Unremarkable. PANCREAS: Unremarkable. No gross lesion or ductal dilatation. SPLEEN: Unremarkable. ADRENALS: Unremarkable. No mass. KIDNEYS AND URETERS: Unremarkable. No hydronephrosis. No solid mass. VASCULATURE: Unremarkable. No aortic aneurysm. No atherosclerotic calcification or mural plaque present. BOWEL: Constipation without fecal impaction or obstruction. APPENDIX: A normal appendix is visualized in it's entirety. PERITONEUM: Trace fluid in the pelvis. Trace air identified about the uterus. Punctate foci of free air within the peritoneal cavity. LYMPH NODES: Unremarkable. No enlarged lymph nodes. BLADDER: Unremarkable. REPRODUCTIVE: The uterus is enlarged, heterogeneous. Orthogonal measurements 11 x 13.3 x 21.1 cm. BONES: No acute fracture. OTHER FINDINGS: A tract of air identified in the soft tissues lateral to the iliac crest on the left presumably postoperative. Thickening of the rectus muscle anteriorly and inferiorly likely hemorrhagic process within the muscles. IMPRESSION: 1. Enlarged uterus compatible with state. 2. Trace fluid in the pelvis. 3. Punctate foci of air within the lower abdomen and pelvis. 4. Thickening of the rectus muscle inferiorly likely hemorrhage within the muscle. This extends from the mid pelvis to the level of the suture line above the pubic symphysis. 5. No evidence of pelvic, retroperitoneal or intraperitoneal hemorrhage. 6. Additional benign and/or incidental findings described above.
--- NOTE | 2018-07-16 18:52 | CP.PCM.CON ---
History of Present Illness - History of Present Illness History of Present Illness: 38 year old female with no past medical history admitted for delivery s/p C- section, with anemia. The patient underwent and found to have a decline in her hgb from 10 to 5. She notes to weakness of feeling light headed. She is s/p 3U PRBC with a hgb improvement from 5.3 to 7.6. She notes to feeling better but still feels slightly light headed. A CT A/P revealed rectus muscle hemorrhage. She is to receive 2 additional units PRBC. Past medical history: Denies Past surgical history: Family history: Denies hematologic and oncologic problems Social history: Denies tobacco, alcohol, and illicit drug use. Allergies: NKA Review of systems: All remaining review of systems including HEENT, cardiova scular, respiratory, gastrointestinal, genitourinary, musculskeletal, dermatologic, neurologic, and psychiatric are negative unless mentioned in the HPI. Past Patient History - Past Social History Smoking Status: Never Smoked - CARDIAC Hx Hypertension: No - PULMONARY Hx Asthma: Yes - MUSCULOSKELETAL/RHEUMATOLOGICAL Hx Falls: Yes (fell last month) - PSYCHIATRIC Hx Substance Use: No - SURGICAL HISTORY Hx Surgeries: No - ANESTHESIA Hx Anesthesia: No Meds Allergies/Adverse Reactions: Allergies Allergy/AdvReac Type Severity Reaction Status Date / Time No Known Allergies Allergy Verified 11/11/16 13:33 - Medications Medications: Current Medications Docusate Sodium (Colace) 100 mg PO BID [facility] Last Admin: 07/16/18 18:25 Dose: 100 mg Ferrous Sulfate (Feosol) 325 mg PO DAILY [facility] Last Admin: 07/16/18 09:56 Dose: 325 mg Lactated Ringer's (Lactated Ringer's) 1,000 mls @ 125 mls/hr IV .Q8H [facility] Last Admin: 07/15/18 06:00 Dose: 125 mls/hr Oxytocin (Pitocin) 30 units in 500 mls @ 2 mls/hr IV .Q24H [facility]; Protocol Last Admin: 07/14/18 20:30 Dose: 2 mls/hr Ibuprofen (Motrin Tab) 600 mg PO Q6H PRN PRN Reason: Pain, Mild (1-3) Last Admin: 07/15/18 18:59 Dose: 600 mg Ketorolac Tromethamine (Toradol) 20 mg IVP Q6H [facility] Stop: 07/16/18 21:40 Last Admin: 07/16/18 16:38 Dose: 20 mg Oxycodone/Acetaminophen (Percocet 5/325 Mg Tab) 1 tab PO Q4H PRN PRN Reason: Pain, moderate (4-7) Stop: 07/18/18 02:44 Last Admin: 07/16/18 08:09 Dose: 1 tab Oxycodone/Acetaminophen (Percocet 5/325 Mg Tab) 2 tab PO Q4H PRN PRN Reason: Pain, severe (8-10) Stop: 07/18/18 02:44 Multivit/Folic Acid/Iron () 1 tab PO DAILY [facility] Last Admin: 07/16/18 09:59 Dose: 1 tab Sennosides (Senokot Tab) 17.2 mg PO HS [facility] Last Admin: 07/15/18 22:24 Dose: 17.2 mg Simethicone (Mylicon Chew Tab) 80 mg PO QID [facility] Last Admin: 07/16/18 18:25 Dose: 80 mg Physical Exam - Head Exam Head Exam: ATRAUMATIC - Eye Exam Eye Exam: Normal appearance - ENT Exam ENT Exam: Mucous Membranes Dry - Respiratory Exam Respiratory Exam: NORMAL BREATHING PATTERN - Cardiovascular Exam Cardiovascular Exam: +S1, +S2 - GI/Abdominal Exam GI & Abdominal Exam: Normal Bowel Sounds - Extremities Exam Extremities exam: Positive for: normal inspection - Neurological Exam Neurological exam: Oriented x3 - Psychiatric Exam Psychiatric exam: Normal Affect, Normal Mood - Skin Skin Exam: Warm Results - Vital Signs Recent Vital Signs: Last Vital Signs Temp 99.5 F 07/16/18 16:00 Pulse 128 H 07/16/18 16:00 Resp 18 07/16/18 16:00 BP 120/74 07/16/18 16:00 Pulse Ox 95 07/16/18 16:00 - Labs Result Diagrams: 07/16/18 11:49 07/16/18 11:49 Labs: Laboratory Results - last 24 hr 07/14/18 07/16/18 07/16/18 18:02 07:41 11:49 WBC 24.4 H 22.8 H RBC 2.75 L 2.47 L Hgb 7.6 L 7.0 L Hct 22.6 L 20.3 L MCV 82.3 82.2 MCH 27.8 28.3 MCHC 33.7 34.5 RDW 15.5 H 15.6 H Plt Count 135 142 MPV 10.5 10.0 Neut % (Auto) 80.8 H Lymph % (Auto) 8.2 L [place] % (Auto) 9.0 Eos % (Auto) 1.8 Baso % (Auto) 0.2 Neut # (Auto) 19.7 H Lymph # (Auto) 2.0 [place] # (Auto) 2.2 H Eos # (Auto) 0.4 Baso # (Auto) 0.0 Neutrophils % (Manual) 70 Band Neutrophils % 10 H Lymphocytes % (Manual) 10 L Monocytes % (Manual) 9 Eosinophils % (Manual) 1 Nucleated RBC % 1 H Platelet Estimate Normal Large Platelets Present Polychromasia Slight Hypochromasia (manual) Slight Poikilocytosis (manual Slight Anisocytosis (manual) Slight Target Cells Slight Ovalocytes Slight Retic Count Haptoglobin Sodium Potassium Chloride Carbon Dioxide Anion Gap BUN Creatinine Est GFR ( Amer) Est GFR (Non-Af Amer) Random Glucose Calcium Total Bilirubin AST ALT Alkaline Phosphatase Lactate Dehydrogenase Total Protein Albumin Globulin Albumin/Globulin Ratio Blood Type O POSITIVE Antibody Screen Negative 07/16/18 07/16/18 07/16/18 11:49 15:40 17:00 WBC RBC Hgb Hct MCV MCH MCHC RDW Plt Count MPV Neut % (Auto) Lymph % (Auto) [place] % (Auto) Eos % (Auto) Baso % (Auto) Neut # (Auto) Lymph # (Auto) [place] # (Auto) Eos # (Auto) Baso # (Auto) Neutrophils % (Manual) Band Neutrophils % Lymphocytes % (Manual) Monocytes % (Manual) Eosinophils % (Manual) Nucleated RBC % Platelet Estimate Large Platelets Polychromasia Hypochromasia (manual) Poikilocytosis (manual Anisocytosis (manual) Target Cells Ovalocytes Retic Count 2.8 H Haptoglobin 138.4 Sodium 135 Potassium 4.1 Chloride 106 Carbon Dioxide 26 Anion Gap 7 L BUN 7 Creatinine 0.6 L Est GFR ( Amer) > 60 Est GFR (Non-Af Amer) > 60 Random Glucose 93 Calcium 8.9 Total Bilirubin 0.4 AST 36 D ALT 19 Alkaline Phosphatase 77 Lactate Dehydrogenase 1076 H Total Protein 4.5 L Albumin 2.2 L D Globulin 2.3 Albumin/Globulin Ratio 1.0 Blood Type Antibody Screen Assessment & Plan (1) Anemia Assessment and Plan: anemia of acute blood loss - and rectus muscle hemorrhage agree with transfusion support coags in AM - may need plasma if concern for continued bleeding as may have dilutional coagulopathy from 5U PRBC no evidence of hemolysis iron/b12/folate store evaluation ordered repeat CBC Status: Acute (2) Thrombocytopenia Assessment and Plan: mild likely consumptive from bleeding Status: Acute (3) Leukocytosis Assessment and Plan: likely reactive to bleeding/blood loss Thank you for this interesting consult. Status: Acute
[2018-07-16] MEDS ORDERED: DiphenhydrAMINE 50 mg/ml Inj IVP STA (19:01)
[2018-07-17 01:04] LABS: SQUAMOUS EPITHIAL < 1 /hpf (0-5); URINE BACTERIA RARE (<OCC); URINE BILIRUBIN NEGATIVE (NEGATIVE); URINE BLOOD 3+ (NEGATIVE); URINE CLARITY Hazy (Clear); URINE COLOR Yellow (YELLOW); URINE GLUCOSE (UA) NORMAL (Normal); URINE LEUKOCYTE ESTERASE 1+ Leu/uL (Negative); URINE PROTEIN 1+ mg/dL (NEGATIVE); URINE UROBILINOGEN NORMAL mg/dL (0.2-1.0)
[2018-07-17 01:27] LABS: IRON 18 ug/dL (37-170)
[2018-07-17 01:32] LABS: % IRON SATURATION 5 (20-55); TOTAL IRON BINDING CAPACITY 357 ug/dL (250-450)
[2018-07-17 01:59] LABS: FERRITIN 27.9 ng/mL
[2018-07-17 07:23] LABS: BASO # 0.1 K/uL (0.0-0.2); BASO % 0.3 % (0.0-2.0); EOS # 0.6 K/uL (0.0-0.7); EOS % 2.7 % (0.0-4.0); LYMPH # 1.9 K/uL (1.0-4.3); LYMPH % 8.3 % (20.0-40.0); MEAN CELL VOLUME 84.1 fL (81.0-99.0); MEAN CORPUSCULAR HGB CONC 34.4 g/dL (33.0-37.0); MEAN PLATELET VOLUME 9.7 fL (7.2-11.7); MONO # 1.7 K/uL (0.0-0.8); MONO % 7.4 % (0.0-10.0); NEUT # 18.9 K/uL (1.8-7.0); NEUT % 81.3 % (50.0-75.0); NRBC % 0.3 % (0.0-2.0); PLATELET COUNT 165 K/uL (130-400); RBC 3.34 Mil/uL (3.80-5.20); RED CELL DISTRIBUTION WIDTH 16.1 % (11.5-14.5); WHITE BLOOD COUNT 23.2 K/uL (4.8-10.8)
[2018-07-17 07:36] LABS: HEMOGLOBIN 9.7 g/dL (11.0-16.0)
[2018-07-17 08:45] LABS: PROTHROMBIN TIME 10.8 SECONDS (9.7-12.2)
[2018-07-17] MEDS: Simethicone 80 mg Chewtab PO SCH ×4 (09:02→22:31)
[2018-07-17] MEDS: Prenatal Multivit/Folic Acid/Iron Tab PO SCH (09:02)
[2018-07-17 09:29] LABS: BANDS 6 % (0-2); EOSINOPHIL 2 % (0-4); LYMPHOCYTE 11 % (20-40); MONOCYTE 6 % (0-10); NEUTROPHIL 75 % (50-75); NUCLEATED RED BLOOD CELL 1 % (0-0); TOTAL CELLS COUNTED 100
[2018-07-17 09:30] LABS: ANISOCYTOSIS SLIGHT; PLATELET ESTIMATE NORMAL (NORMAL); POIKILOCYTOSIS SLIGHT
[2018-07-17 09:31] LABS: LARGE PLATELETS PRESENT; MICROCYTOSIS SLIGHT; OVALOCYTES SLIGHT; POLYCHROMIC SLIGHT
--- NOTE | 2018-07-17 14:45 | OBPPN ---
Datetime: 07/17/2018 14:24 PP Pain Prov: Within normal limits PP Nausea Prov: Denies PP Flatus Prov: Yes PP BM Prov: No PP Breasts Prov: Normal PP Heart Prov: Normal PP Lungs Prov: Normal PP Abdomen/Uterus Prov: Normal PP Lochia Prov: Normal PP Vulva/Perineum Prov: Not Done PP CVA Tenderness Prov: Normal PP Extremities Prov: Normal PP C/S Incision Prov: Normal PP Progress Prov: Normal PP Comments Phys Exam Prov: Abdomen: (+) ABS. Softly distended. Fundus approx 26 weeks, firm, mildly tender, mobile. Incision with luigi - clena, dry and intact. Minimal lochia rubra. Extremities: no calf tenderness, 2+ pedal edema All other systems reviewed and are negative PP Impression Prov: Normal progression PP Plan Prov: Continue present management PP Progress Note Prov: Patient seen, evaluated and examined at approximately 1000 hours. Received in room 461; just finished formula feeding Patient reports incisional pain, painscale 12/14 when she walked to the bathroom. At the time of in [facility], had not asked for pain meds, "I wanted to feed the baby and eat first". Denies headaches, li ghtheadedness, dizziness, chest pain, shortness of breath; nausea, vomiting. Ambulating in the room o nly. Voiding spontaneously. Attempting to breastfeed - "not much coming out"; hence giving formula as well. P.E.: as above. WD in NAD. Awake, alert, oriented to time, person and place. Pleasant and coopera tive - CBC this AM: WBC 23.4; H/H 9.7/28.1. Plt 165 Assessment: POD#2, 38 y.o. P4, S/P primary C/S for arrest of descent with intrapartum blood loss r esulting in acute blood loss anemia. Incidental finding by CT scan 07/16/18 of possible rectus muscle hemorrhage, the latter most likely a contributing factor to the severe post operative anemia, requiri ng 5 units PRBCs. Hematologiy consult read and appreciated. Thank you, Dr. Mack. Patient encourgage d to: 1) ambulate in the hallways; 2) shower; 3) continue to place on her breasts; 4) ask for , and take, pain medications in a more timely manner. H/H improved. Corrinaetn is asymptomaitc and hemod ynamically stable. Leukocytosis - secondary to blood loss (input per Dr. Mack. Thank you). NB: corrina ent is afebrile. Patient is clinically stable. Plan: 1) As above. 2) CBC in AM 3) Possible discharge home 07/18/18 IP PP Procedures: None Vital Signs Provider PP: Reviewed; Within Normal Limits
[2018-07-18 00:16] VITALS: RESP 20
[2018-07-18 07:56] VITALS: BP 120/85; PULSE 70; O2SAT 98
[2018-07-18 08:40] LABS: BASO % 0.2 % (0.0-2.0); EOS # 2.1 K/uL (0.0-0.7); EOS % 11.7 % (0.0-4.0); LYMPH # 2.6 K/uL (1.0-4.3); LYMPH % 14.8 % (20.0-40.0); MEAN CELL VOLUME 84.9 fL (81.0-99.0); MEAN CORPUSCULAR HEMOGLOBIN 28.4 pg (27.0-31.0); MEAN CORPUSCULAR HGB CONC 33.4 g/dL (33.0-37.0); MEAN PLATELET VOLUME 9.7 fL (7.2-11.7); MONO # 1.3 K/uL (0.0-0.8); MONO % 7.6 % (0.0-10.0); NEUT # 11.7 K/uL (1.8-7.0); NEUT % 65.7 % (50.0-75.0); NRBC % 0.5 % (0.0-2.0); RBC 3.52 Mil/uL (3.80-5.20); RED CELL DISTRIBUTION WIDTH 15.7 % (11.5-14.5); WHITE BLOOD COUNT 17.8 K/uL (4.8-10.8)
[2018-07-18] MEDS: Prenatal Multivit/Folic Acid/Iron Tab PO SCH (09:56)
[2018-07-18] MEDS: Simethicone 80 mg Chewtab PO SCH (09:56)
--- NOTE | 2018-07-18 11:39 | OBDCSUM ---
Datetime: 07/18/2018 07:31 Discharged to, Provider: Home Follow up at, Provider: [facility] Disch Instr Activity: Normal activity; May be up for meals; May Shower Disch Instr Diet: Regular Discharge Instructions, Provider: Routine instructions given Discharge Diagnosis, Provider: Term Delivered Discharge Time: 07/18/2018 11:17 Follow up in weeks, Provider: 07/23/2018 Disch Referrals: None Contraception discussed, Prov: Yes Disch Activity Restrictions: No lifting; No sexual activity; Nothing in vagina - [place], tampon s, douche Discharge Diagnosis Prov Other: Arrest of descent Status post primary section Advanced maternal age Acute blood loss anemia Status post blood transfusion Contraception counseling Contraception after Delivery: Undecided
--- NOTE | 2018-07-18 11:40 | OBPPN ---
Datetime: 07/18/2018 07:17 PP Pain Prov: Within normal limits PP Nausea Prov: Denies PP Flatus Prov: Yes PP BM Prov: Yes PP Breasts Prov: Normal PP Heart Prov: Normal PP Lungs Prov: Normal PP Abdomen/Uterus Prov: Normal PP Lochia Prov: Normal PP Vulva/Perineum Prov: Not Done PP CVA Tenderness Prov: Normal PP Extremities Prov: Normal PP C/S Incision Prov: Normal PP Progress Prov: Abnormal PP Comments Phys Exam Prov: Abdomen: Soft. (+) ABS. Fundus firm, mobile, minimally tender, approx 24 cm, Incision with luigi - clean, dry and intact Extremities: 2+ pedal edema; no calf tenderness All other systems reviewed and are negative PP Impression Prov: Normal progression PP Plan Prov: Discharge PP Progress Note Prov: Patient receivedi n room 461, attending to . Desires to breastfeed; st ill bottlefeeding primarily. Reports incisional pain, worsened with movement. Pain scale 8/10 - impro blaise with meds. Denies nausea, vomiting, headaches, dizziness, lightheadedness, palpitations, chest p ain. Ambulating in the hallway; voiding spontaneously. P.E.: as above. WD in NAD. Awake, alert, oriented to time, person and place. Pleasant and cooperea tive - CBC pending Assessment: 38 y.o. P4004, POD#3, S/P primary LTCS for arrest of descent. Acute blood loss anemia secondary to intraoperative bllod loss coupled with probable rectus muscle hemorrhage - latter, appar ently stabilized. S/P 5 Units PRBCs; H/H stable over past 24 hours. Currently, afebrile, vital signs stable. Returning GI and functions. Unsure re: contraception.. Patient is clinically stable. Plan: 1) Check CBC from today 2) Anticipate discharge home today 3) See full discharge instructions Addendum - 1115 hours: WBC 17.8; H/H 10.0/29.8; plt 198. Urine culture and blood cultures x 2 negative at 48 hours. Impression:H/H stable. cultures negative. Patient is clinically stable; cleared for discharge home Vital Signs Provider PP: Reviewed; Within Normal Limits
[2018-07-18 17:44] VITALS: TEMP 97
--- NOTE | 2018-07-18 20:32 | CP.PCM.PN ---
Subjective - Date & Time of Evaluation Date of Evaluation: 07/17/18 Time of Evaluation: 16:00 - Subjective Subjective: Has mild incisional pain no longer dizzy Objective - Vital Signs/Intake and Output Vital Signs (last 24 hours): Temp Pulse Resp BP Pulse Ox 97.0 F L 70 20 120/85 98 07/18/18 17:44 07/18/18 17:44 07/18/18 17:44 07/18/18 17:44 07/18/18 17:44 - Labs Labs: 07/18/18 08:30 07/16/18 11:49 PT 10.8 SECONDS (9.7-12.2) 07/17/18 07:16 INR 1.0 07/17/18 07:16 APTT 29 SECONDS (21-34) 07/17/18 07:16 - Head Exam Head Exam: ATRAUMATIC - Eye Exam Eye Exam: Normal appearance - ENT Exam ENT Exam: Mucous Membranes Dry - Respiratory Exam Respiratory Exam: NORMAL BREATHING PATTERN - Cardiovascular Exam Cardiovascular Exam: +S1, +S2 - GI/Abdominal Exam GI & Abdominal Exam: Normal Bowel Sounds Assessment and Plan (1) Anemia Assessment & Plan: acute blood loss, and rectus bleeding s/p PRBC transfusion H/H stable Status: Acute (2) Leukocytosis Assessment & Plan: secondary to bloodloss Status: Acute
--- NOTE | 2018-07-18 20:33 | CP.PCM.PN ---
Subjective - Date & Time of Evaluation Date of Evaluation: 07/18/18 Time of Evaluation: 11:00 - Subjective Subjective: Feeling better Objective - Vital Signs/Intake and Output Vital Signs (last 24 hours): Temp Pulse Resp BP Pulse Ox 97.0 F L 70 20 120/85 98 07/18/18 17:44 07/18/18 17:44 07/18/18 17:44 07/18/18 17:44 07/18/18 17:44 - Labs Labs: 07/18/18 08:30 07/16/18 11:49 PT 10.8 SECONDS (9.7-12.2) 07/17/18 07:16 INR 1.0 07/17/18 07:16 APTT 29 SECONDS (21-34) 07/17/18 07:16 - Head Exam Head Exam: ATRAUMATIC - Eye Exam Eye Exam: Normal appearance - ENT Exam ENT Exam: Mucous Membranes Dry - Respiratory Exam Respiratory Exam: NORMAL BREATHING PATTERN - Cardiovascular Exam Cardiovascular Exam: +S1, +S2 - GI/Abdominal Exam GI & Abdominal Exam: Normal Bowel Sounds Assessment and Plan (1) Anemia Assessment & Plan: resolved blood loss s/p PRBC transfusion repeat CBC in 1 week Status: Acute (2) Leukocytosis Assessment & Plan: secondary to blood loss repeat CBC in 1 week Status: Acute
== END 2018-07-18 12:20 | disposition home or self-care (01) | DRG 540 ==
LOC: C.EROB 17:25 → C.4D 17:41 → C.4M 07-15 10:23
PROVIDERS: ADMIT Obstetrics & Gynecology; ATTEND Obstetrics & Gynecology
PROC: 10D00Z1 Extraction of Products of Conception, Low, Open Approach (ICD-10-PCS; principal; 2018-07-15)
DX: O99.824 Streptococcus B carrier state complicating childbirth (principal); D62 Acute posthemorrhagic anemia; D69.6 Thrombocytopenia, unspecified; O99.02 Anemia complicating childbirth; Z3A.39 39 weeks gestation of pregnancy; O62.1 Secondary uterine inertia; D72.829 Elevated white blood cell count, unspecified; J45.909 Unspecified asthma, uncomplicated; O72.1 Other immediate postpartum hemorrhage; O99.52 Diseases of the respiratory system complicating childbirth; Z30.09 Encounter for other general counseling and advice on contraception; Z37.0 Single live birth